=== PATIENT | male | born 1975 | race African-American/Black ===

== ENCOUNTER 2018-09-16 09:13 | Inpatient (IN) | payer OTHER ==
[2018-09-16 09:31] VITALS: BMI 24.9
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
[2018-09-16] MEDS ORDERED: hydrOXYzine PAMOATE 25 MG CAPSULE (FP) PO PRN (11:33)
[2018-09-16] MEDS ORDERED: ACETAMINOPHEN 325 MG TABLET (FP) PO PRN ×2 (11:33)
[2018-09-16] MEDS ORDERED: METHOCARBAMOL 500 MG TABLET PO PRN (11:33)
[2018-09-16] MEDS ORDERED: MAGNESIUM CITRATE 300 ML BOTTLE PO PRN (11:33)
[2018-09-16] MEDS ORDERED: IBUPROFEN 400 MG TABLET (FP) PO PRN (11:33)
[2018-09-16] MEDS ORDERED: MAG HYDROX/AL HYDROX/SIMETH 30 ML UNIT-DOSE CUP PO PRN (11:33)
[2018-09-16] MEDS ORDERED: MAGNESIUM HYDROX 2400MG/30ML ORAL SUSPENSION 30 ML CUP PO PRN (11:33)
[2018-09-16] MEDS ORDERED: MELATONIN 5 MG TABLETS PO PRN (11:33)
[2018-09-16] MEDS ORDERED: MENTHOL/PHENOL 1 EACH UD MM PRN (11:33)
[2018-09-16] MEDS ORDERED: BISMUTH SUBSALICYLATE 524 MG/30 ML UD PO PRN (11:33)
[2018-09-16] MEDS ORDERED: chlordiazePOXIDE HCL 25 MG CAPSULE PO PRN (11:33)
[2018-09-16 16:33] LABS: HEMATOCRIT 43.4 % (35.4-49); MCH 23.8 pg (25.7-33.7); MCHC 32.2 g/dl (32.0-35.9); MEAN CELL VOLUME 74.1 fl (80-96); MEAN PLT VOLUME 8.8 fl (7.5-11.1); PLATELET COUNT 172 K/MM3 (134-434); RBC 5.86 M/mm3 (4.00-5.60); WHITE BLOOD COUNT 5.5 K/mm3 (4.0-10.0)
[2018-09-16 16:39] LABS: BILIRUBIN,TOTAL 1.2 mg/dL (0.2-1); CALCIUM 8.7 mg/dL (8.5-10.1); CREATININE 0.9 mg/dL (0.55-1.3); POTASSIUM 4.3 mmol/L (3.5-5.1); TOT PROT 7.4 g/dl (6.4-8.2)
[2018-09-16] MEDS: THIAMINE HCL 100 MG TABLET (FP) PO SCH (22:46)
[2018-09-16] MEDS: chlordiazePOXIDE HCL 25 MG CAPSULE PO SCH (22:47)
[2018-09-17] MEDS: chlordiazePOXIDE HCL 25 MG CAPSULE PO SCH ×4 (05:33→22:23)
[2018-09-17] MEDS ORDERED: ONDANSETRON *ODT* 4 MG TABLET SL ONE (08:54)
[2018-09-17] MEDS ORDERED: PNEUMOCOCCAL 23 VACCINE 0.5 ML VIAL IM ONE (10:00)
[2018-09-17] MEDS: PRENATAL VITAMINS W/ FOLIC ACID TABLET (FP) PO SCH (10:19)
[2018-09-17] MEDS ORDERED: PNEUMOC 13-VAL CONJ-DIP CRM/PF 0.5 ML DISP.SYRIN IM ONE (12:00)
--- NOTE | 2018-09-17 13:33 | PN ---
S CIWA - CIWA Score Nausea/Vomitin-Mild Nausea/No Vomiting Muscle Tremors: 3 Anxiety: 2 Agitation: 2 Paroxysmal Sweats: 1-Minimal Palms Moist Orientation: 0-Oriented Tacttile Disturbances: 1-Very Mild Itch/Numbness Auditory Disturbances: 0-None Visual Disturbances: 0-None Headache: 1-Very Mild CIWA-Ar Total Score: 11 S Progress Note (SOAP) Subjective: patient lying on bed tremor sweat nausea after breakfast claudia sl x 1 works well with nausea tolerate food and fluid better ensure 120 ml bid po Objective: 09/17/18 13:34 Vital Signs Temperature 96.7 F L 09/17/18 13:01 Pulse Rate 80 09/17/18 13:01 Respiratory Rate 18 09/17/18 13:01 Blood Pressure 139/85 09/17/18 13:01 O2 Sat by Pulse Oximetry (%) Laboratory Last Values WBC 5.5 K/mm3 (4.0-10.0) 09/16/18 12:20 RBC 5.86 M/mm3 (4.00-5.60) H 09/16/18 12:20 Hgb 14.0 GM/dL (11.7-16.9) 09/16/18 12:20 Hct 43.4 % (35.4-49) 09/16/18 12:20 MCV 74.1 fl (80-96) L 09/16/18 12:20 MCH 23.8 pg (25.7-33.7) L 09/16/18 12:20 MCHC 32.2 g/dl (32.0-35.9) 09/16/18 12:20 RDW 17.0 % (11.9-15.9) H 09/16/18 12:20 Plt Count 172 K/MM3 (134-434) D 09/16/18 12:20 MPV 8.8 fl (7.5-11.1) 09/16/18 12:20 Sodium 139 mmol/L (136-145) 09/16/18 12:20 Potassium 4.3 mmol/L (3.5-5.1) 09/16/18 12:20 Chloride 104 mmol/L (98-107) 09/16/18 12:20 Carbon Dioxide 27 mmol/L (21-32) 09/16/18 12:20 Anion Gap 8 MMOL/L (8-16) 09/16/18 12:20 BUN 11.0 mg/dL (7-18) 09/16/18 12:20 Creatinine 0.9 mg/dL (0.55-1.3) 09/16/18 12:20 Est GFR (CKD-EPI)AfAm 122.52 09/16/18 12:20 Est GFR (CKD-EPI)NonAf 105.71 09/16/18 12:20 Random Glucose 78 mg/dL (74-106) 09/16/18 12:20 Calcium 8.7 mg/dL (8.5-10.1) 09/16/18 12:20 Total Bilirubin 1.2 mg/dL (0.2-1) H 09/16/18 12:20 AST 70 U/L (15-37) H 09/16/18 12:20 ALT 74 U/L (13-61) H 09/16/18 12:20 Alkaline Phosphatase 88 U/L (45-117) 09/16/18 12:20 Total Protein 7.4 g/dl (6.4-8.2) 09/16/18 12:20 Albumin 4.0 g/dl (3.4-5.0) 09/16/18 12:20 RPR Titer Nonreactive (NONREACTIVE) 09/16/18 12:20 lab noted Assessment: 09/17/18 13:35 alcohol withdrawal sx Plan: continue alcohol detox
[2018-09-17] MEDS: THIAMINE HCL 100 MG TABLET (FP) PO SCH (22:23)
[2018-09-18] MEDS: chlordiazePOXIDE HCL 25 MG CAPSULE PO SCH ×4 (05:35→22:32)
[2018-09-18] MEDS: PRENATAL VITAMINS W/ FOLIC ACID TABLET (FP) PO SCH (10:15)
[2018-09-18] MEDS ORDERED: ONDANSETRON *ODT* 4 MG TABLET SL PRN (13:54)
--- NOTE | 2018-09-18 17:58 | PN ---
S CIWA - CIWA Score Nausea/Vomitin Muscle Tremors: 3 Anxiety: 3 Agitation: 0-Normal Activity Paroxysmal Sweats: 3 Orientation: 2-Disoriented Date<2 days Tacttile Disturbances: 0-None Auditory Disturbances: 0-None Visual Disturbances: 0-None Headache: 0-None Present CIWA-Ar Total Score: 14 [facility] Progress Note (SOAP) Subjective: Sweating, Tremors, Nausea, Diarrhea. Objective: PATIENT A & O X 2 (UNCERTAIN ABOUT CURRENT DAY / DATE). PATIENT OBSERVED AMBULATING ON UNIT UNASSISTED. IN NO ACUTE DISTRESS. 09/18/18 17:55 Vital Signs Temperature 98.3 F 09/18/18 13:11 Pulse Rate 86 09/18/18 13:11 Respiratory Rate 18 09/18/18 13:11 Blood Pressure 153/84 09/18/18 13:11 O2 Sat by Pulse Oximetry (%) Laboratory Tests 09/16/18 09/16/18 09/16/18 12:20 12:20 12:20 WBC 5.5 RBC 5.86 H Hgb 14.0 Hct 43.4 MCV 74.1 L MCH 23.8 L MCHC 32.2 RDW 17.0 H Plt Count 172 D MPV 8.8 Sodium 139 Potassium 4.3 Chloride 104 Carbon Dioxide 27 Anion Gap 8 BUN 11.0 Creatinine 0.9 Est GFR (CKD-EPI)AfAm 122.52 Est GFR (CKD-EPI)NonAf 105.71 Random Glucose 78 Calcium 8.7 Total Bilirubin 1.2 H AST 70 H ALT 74 H Alkaline Phosphatase 88 Total Protein 7.4 Albumin 4.0 RPR Titer Nonreactive LABS NOTED. RESULTS OF DETOX ADMISSION QFT /TB TEST PENDING. PATIENT HAS HAD ELEVATED ALT AND AST LEVELS ON PREVIOUS ADMISSIONS. 09/18/18 17:57 Assessment: 09/18/18 17:56 WITHDRAWAL SYMPTOMS. ELEVATED AST LEVEL. EELVATED ALT LEVEL. Plan: CONTINUE DETOX. INCREASE DAILY PO WATER INTAKE. PRN PEPTO-BISMOL PO FOR DIARRHEA.
[2018-09-18] MEDS: THIAMINE HCL 100 MG TABLET (FP) PO SCH (22:32)
[2018-09-19] MEDS ORDERED: chlordiazePOXIDE HCL 10 MG CAPSULE PO PRN
[2018-09-19] MEDS: chlordiazePOXIDE HCL 10 MG CAPSULE PO SCH ×4 (05:25→22:50)
[2018-09-19] MEDS: PRENATAL VITAMINS W/ FOLIC ACID TABLET (FP) PO SCH (10:37)
--- NOTE | 2018-09-19 13:26 | PN ---
S CIWA - CIWA Score Nausea/Vomitin Muscle Tremors: 3 Anxiety: 3 Agitation: 0-Normal Activity Paroxysmal Sweats: 2 Orientation: 2-Disoriented Date<2 days Tacttile Disturbances: 0-None Auditory Disturbances: 0-None Visual Disturbances: 0-None Headache: 0-None Present CIWA-Ar Total Score: 12 B[facility] Progress Note (SOAP) Subjective: Sweating, Tremors, Nausea. Patient Reports Mild Reduction in Current withdrawal symptoms over last couple of days. Objective: PATIENT A & O X 2 (UNCERTAIN ABOUT CURRENT DAY / DATE). PATIENT OBSERVED AMBULATING ON UNIT UNASSISTED. IN NO ACUTE DISTRESS. 09/19/18 13:27 Vital Signs Temperature 96.9 F L 09/19/18 09:32 Pulse Rate 72 09/19/18 09:32 Respiratory Rate 18 09/19/18 09:32 Blood Pressure 130/90 09/19/18 09:32 O2 Sat by Pulse Oximetry (%) Laboratory Tests 09/16/18 09/16/18 09/16/18 12:20 12:20 12:20 WBC 5.5 RBC 5.86 H Hgb 14.0 Hct 43.4 MCV 74.1 L MCH 23.8 L MCHC 32.2 RDW 17.0 H Plt Count 172 D MPV 8.8 Sodium 139 Potassium 4.3 Chloride 104 Carbon Dioxide 27 Anion Gap 8 BUN 11.0 Creatinine 0.9 Est GFR (CKD-EPI)AfAm 122.52 Est GFR (CKD-EPI)NonAf 105.71 Random Glucose 78 Calcium 8.7 Total Bilirubin 1.2 H AST 70 H ALT 74 H Alkaline Phosphatase 88 Total Protein 7.4 Albumin 4.0 RPR Titer Nonreactive TB (QFT) Incubation TB Test (QFT) Nil TB Test (QFT) Mitogen TB Test (QFT) Antigen TB Test (QFT) TB Positive Criteria 09/16/18 12:20 WBC RBC Hgb Hct MCV MCH MCHC RDW Plt Count MPV Sodium Potassium Chloride Carbon Dioxide Anion Gap BUN Creatinine Est GFR (CKD-EPI)AfAm Est GFR (CKD-EPI)NonAf Random Glucose Calcium Total Bilirubin AST ALT Alkaline Phosphatase Total Protein Albumin RPR Titer TB (QFT) Incubation TB Test (QFT) Nil 0.07 TB Test (QFT) Mitogen >10.00 TB Test (QFT) Antigen 0.16 TB Test (QFT) Negative TB Positive Criteria LABS NOTED. Assessment: 09/19/18 13:27 WITHDRAWAL SYMPTOMS. ELEVATED AST LEVEL. ELEVATED ALT LEVEL. 09/19/18 13:28 Plan: CONTINUE DETOX. INCREASE DAILY PO WATER INTAKE.
[2018-09-19] MEDS: THIAMINE HCL 100 MG TABLET (FP) PO SCH (22:50)
[2018-09-20] MEDS: chlordiazePOXIDE HCL 10 MG CAPSULE PO SCH ×2 (05:38→16:48)
[2018-09-20] MEDS: PRENATAL VITAMINS W/ FOLIC ACID TABLET (FP) PO SCH (10:12)
--- NOTE | 2018-09-20 11:56 | PN ---
[facility] CIWA - CIWA Score Nausea/Vomitin-No Nausea/No Vomiting Muscle Tremors: 2 Anxiety: 2 Agitation: 2 Paroxysmal Sweats: 1-Minimal Palms Moist Orientation: 0-Oriented Tacttile Disturbances: 0-None Auditory Disturbances: 0-None Visual Disturbances: 0-None Headache: 1-Very Mild CIWA-Ar Total Score: 8 S Progress Note (SOAP) Subjective: 43 years old male admitted on 09/16/18 for alcohol withdrawal sx management doing well with librium detox regimen mild tremor less sweat hesitate to discuss aftercare with staff irritable Objective: 09/20/18 12:04 Vital Signs Temperature 98.2 F 09/20/18 09:28 Pulse Rate 70 09/20/18 09:28 Respiratory Rate 18 09/20/18 09:28 Blood Pressure 136/90 09/20/18 09:28 O2 Sat by Pulse Oximetry (%) Laboratory Last Values WBC 5.5 K/mm3 (4.0-10.0) 09/16/18 12:20 RBC 5.86 M/mm3 (4.00-5.60) H 09/16/18 12:20 Hgb 14.0 GM/dL (11.7-16.9) 09/16/18 12:20 Hct 43.4 % (35.4-49) 09/16/18 12:20 MCV 74.1 fl (80-96) L 09/16/18 12:20 MCH 23.8 pg (25.7-33.7) L 09/16/18 12:20 MCHC 32.2 g/dl (32.0-35.9) 09/16/18 12:20 RDW 17.0 % (11.9-15.9) H 09/16/18 12:20 Plt Count 172 K/MM3 (134-434) D 09/16/18 12:20 MPV 8.8 fl (7.5-11.1) 09/16/18 12:20 Sodium 139 mmol/L (136-145) 09/16/18 12:20 Potassium 4.3 mmol/L (3.5-5.1) 09/16/18 12:20 Chloride 104 mmol/L (98-107) 09/16/18 12:20 Carbon Dioxide 27 mmol/L (21-32) 09/16/18 12:20 Anion Gap 8 MMOL/L (8-16) 09/16/18 12:20 BUN 11.0 mg/dL (7-18) 09/16/18 12:20 Creatinine 0.9 mg/dL (0.55-1.3) 09/16/18 12:20 Est GFR (CKD-EPI)AfAm 122.52 09/16/18 12:20 Est GFR (CKD-EPI)NonAf 105.71 09/16/18 12:20 Random Glucose 78 mg/dL (74-106) 09/16/18 12:20 Calcium 8.7 mg/dL (8.5-10.1) 09/16/18 12:20 Total Bilirubin 1.2 mg/dL (0.2-1) H 09/16/18 12:20 AST 70 U/L (15-37) H 09/16/18 12:20 ALT 74 U/L (13-61) H 09/16/18 12:20 Alkaline Phosphatase 88 U/L (45-117) 09/16/18 12:20 Total Protein 7.4 g/dl (6.4-8.2) 09/16/18 12:20 Albumin 4.0 g/dl (3.4-5.0) 09/16/18 12:20 RPR Titer Nonreactive (NONREACTIVE) 09/16/18 12:20 TB (QFT) Incubation (.) 09/16/18 12:20 TB Test (QFT) Nil 0.07 IU/mL (.) 09/16/18 12:20 TB Test (QFT) Mitogen >10.00 IU/mL (.) 09/16/18 12:20 TB Test (QFT) Antigen 0.16 IU/mL (.) 09/16/18 12:20 TB Test (QFT) Negative (Negative) 09/16/18 12:20 TB Positive Criteria (.) 09/16/18 12:20 lab noted Assessment: 09/20/18 12:04 alcohol withdrawal sx Plan: continue alcohol detox
[2018-09-20] MEDS: THIAMINE HCL 100 MG TABLET (FP) PO SCH (22:07)
[2018-09-21] MEDS ORDERED: chlordiazePOXIDE HCL 10 MG CAPSULE PO ONE (05:00)
[2018-09-21 09:38] VITALS: BP 130/87; PULSE 99; TEMP 97.3
[2018-09-21] MEDS: PRENATAL VITAMINS W/ FOLIC ACID TABLET (FP) PO SCH (09:38)
--- NOTE | 2018-09-21 12:36 | DS ---
[facility] Detox Discharge Summary Admission Date: 09/16/18 Discharge Date: 09/21/18 - History Present History: Alcohol Dependence Additional Comments: 43 years old male admitted on 09/16/18 for acute alcohol withdrawal sx management doing well with librium detox regimen no complication through out the detox stay alert oriented x 3 speech clearly steady gait denies dizziness no shortness of breathe aftercare bridging access to care - Physical Exam Results Vital Signs: Vital Signs Temperature 97.3 F L 09/21/18 09:37 Pulse Rate 99 H 09/21/18 09:37 Respiratory Rate 18 09/21/18 09:37 Blood Pressure 130/87 09/21/18 09:37 O2 Sat by Pulse Oximetry (%) Pertinent Admission Physical Exam Findings: alcohol withdrawal sx Laboratory Last Values WBC 5.5 K/mm3 (4.0-10.0) 09/16/18 12:20 RBC 5.86 M/mm3 (4.00-5.60) H 09/16/18 12:20 Hgb 14.0 GM/dL (11.7-16.9) 09/16/18 12:20 Hct 43.4 % (35.4-49) 09/16/18 12:20 MCV 74.1 fl (80-96) L 09/16/18 12:20 MCH 23.8 pg (25.7-33.7) L 09/16/18 12:20 MCHC 32.2 g/dl (32.0-35.9) 09/16/18 12:20 RDW 17.0 % (11.9-15.9) H 09/16/18 12:20 Plt Count 172 K/MM3 (134-434) D 09/16/18 12:20 MPV 8.8 fl (7.5-11.1) 09/16/18 12:20 Sodium 139 mmol/L (136-145) 09/16/18 12:20 Potassium 4.3 mmol/L (3.5-5.1) 09/16/18 12:20 Chloride 104 mmol/L (98-107) 09/16/18 12:20 Carbon Dioxide 27 mmol/L (21-32) 09/16/18 12:20 Anion Gap 8 MMOL/L (8-16) 09/16/18 12:20 BUN 11.0 mg/dL (7-18) 09/16/18 12:20 Creatinine 0.9 mg/dL (0.55-1.3) 09/16/18 12:20 Est GFR (CKD-EPI)AfAm 122.52 09/16/18 12:20 Est GFR (CKD-EPI)NonAf 105.71 09/16/18 12:20 Random Glucose 78 mg/dL (74-106) 09/16/18 12:20 Calcium 8.7 mg/dL (8.5-10.1) 09/16/18 12:20 Total Bilirubin 1.2 mg/dL (0.2-1) H 09/16/18 12:20 AST 70 U/L (15-37) H 09/16/18 12:20 ALT 74 U/L (13-61) H 09/16/18 12:20 Alkaline Phosphatase 88 U/L (45-117) 09/16/18 12:20 Total Protein 7.4 g/dl (6.4-8.2) 09/16/18 12:20 Albumin 4.0 g/dl (3.4-5.0) 09/16/18 12:20 RPR Titer Nonreactive (NONREACTIVE) 09/16/18 12:20 TB (QFT) Incubation (.) 09/16/18 12:20 TB Test (QFT) Nil 0.07 IU/mL (.) 09/16/18 12:20 TB Test (QFT) Mitogen >10.00 IU/mL (.) 09/16/18 12:20 TB Test (QFT) Antigen 0.16 IU/mL (.) 09/16/18 12:20 TB Test (QFT) Negative (Negative) 09/16/18 12:20 TB Positive Criteria (.) 09/16/18 12:20 lab noted - Treatment Hospital Course: Detox Protocol Followed, Detoxed Safely, Responded well, Discharged Condition Good, Rehab Referral Accepted Patient has Accepted a Rehab Referral to: bridging access to care - Medication Discharge Medications: Ambulatory Orders NK [No Known Home Medication] 09/04/17 - Diagnosis (1) Alcohol dependence with uncomplicated withdrawal Status: Acute (2) Nicotine dependence Status: Acute Qualifiers: Nicotine product type: cigarettes Substance use status: in withdrawal Qualified Code(s): F17.213 - Nicotine dependence, cigarettes, with withdrawal (3) Alcohol-induced mood disorder Status: Suspected - AMA Did Patient Leave Against Medical Advice: No
== END 2018-09-21 08:45 | disposition home or self-care (01) | DRG 775 ==
LOC: YASAS 09:13 → Y3N 11:57
PROVIDERS: ADMIT Surgery; ATTEND Surgery
PROC: HZ2ZZZZ Detoxification Services for Substance Abuse Treatment (ICD-10-PCS; principal; 2018-09-16)
DX: F10.20 Alcohol dependence, uncomplicated (principal); F12.10 Cannabis abuse, uncomplicated; F17.210 Nicotine dependence, cigarettes, uncomplicated; F32.9 Major depressive disorder, single episode, unspecified; M79.18 Myalgia, other site; R94.5 Abnormal results of liver function studies; Z59.0 Homelessness
CPT/HCPCS: 36415; 80053; 85027; 86480; 86593; Q0162

== ENCOUNTER 2019-02-22 14:46 | Inpatient (IN) | payer OTHER ==
[2019-02-22 17:05] VITALS: BMI 26.1
[2019-02-22] MEDS ORDERED: MAGNESIUM HYDROX 2400MG/30ML ORAL SUSPENSION 30 ML CUP PO PRN (20:17)
[2019-02-22] MEDS ORDERED: NICOTINE POLACRILEX 2 MG GUM BUC PRN (20:17)
[2019-02-22] MEDS ORDERED: IBUPROFEN 400 MG TABLET (FP) PO PRN (20:17)
[2019-02-22] MEDS ORDERED: MAG HYDROX/AL HYDROX/SIMETH 30 ML UNIT-DOSE CUP PO PRN (20:17)
[2019-02-22] MEDS ORDERED: ACETAMINOPHEN 325 MG TABLET (FP) PO PRN ×2 (20:17)
[2019-02-22] MEDS ORDERED: MAGNESIUM CITRATE 300 ML BOTTLE PO PRN (20:17)
[2019-02-22] MEDS ORDERED: LORazepam 2 MG TABLET PO ONE (20:17)
[2019-02-22] MEDS ORDERED: MENTHOL/PHENOL 1 EACH UD MM PRN (20:17)
[2019-02-22] MEDS ORDERED: BISMUTH SUBSALICYLATE 524 MG/30 ML UD PO PRN (20:17)
[2019-02-22] MEDS ORDERED: LORazepam 1 MG TABLET PO PRN (20:17)
[2019-02-22] MEDS ORDERED: METHOCARBAMOL 500 MG TABLET PO PRN (20:17)
[2019-02-22] MEDS ORDERED: hydrOXYzine PAMOATE 25 MG CAPSULE (FP) PO PRN (20:17)
[2019-02-22] MEDS ORDERED: ONDANSETRON *ODT* 4 MG TABLET SL PRN (20:17)
[2019-02-22] MEDS ORDERED: MELATONIN 5 MG TABLETS PO PRN (20:17)
--- NOTE | 2019-02-22 20:17 | HP ---
CIWA Score Nausea/Vomitin Muscle Tremors: 3 Anxiety: 2 Agitation: 2 Paroxysmal Sweats: 1-Minimal Palms Moist Orientation: 0-Oriented Tacttile Disturbances: 0-None Auditory Disturbances: 0-None Visual Disturbances: 1-Very Mild Sensitivity Headache: 1-Very Mild CIWA-Ar Total Score: 12 - Admission Criteria OASAS Guidelines: Admission for Medically Managed Detox: Requires at least one of the followin. CIWA greater than 12 2. Seizures within the past 24 hours 3. Delirium tremens within the past 24 hours 4. Hallucinations within the past 24 hours 5. Acute intervention needed for co occurring medical disorder 6. Acute intervention needed for co occurring psychiatric disorder 7. Severe withdrawal that cannot be handled at a lower level of care (continued vomiting, continued diarrhea, abnormal vital signs) requiring intravenous medication and/or fluids 8. Patient presents the following: CIWA greater than 12 Admission Criteria Met: Admission criteria met Admitting History and Physical - Smoking History Smoking history: Current every day smoker Have you smoked in the past 12 months: Yes Aproximately how many cigarettes per day: 5 - Alcohol/Substance Use Hx Alcohol Use: Yes (binges and also up to 5 pints per day) Admission [facility] Chief Complaint: alcohol detox Allergies/Adverse Reactions: Allergies Allergy/AdvReac Type Severity Reaction Status Date / Time No Known Allergies Allergy Verified 02/22/19 16:56 History of Present Illness: 44 yo with h/o AUD, last here 08/2018, h/o depression- on no meds, was in an outpt program for AUD, left, states he is drinking every- 4-5 pints/day, of vodka, no h/o seizures/DT's. Last drink today THC-2 blunts/week DUR- no recent meds - Ebola screening Have you traveled outside of the country in the last 21 days: No Have you had contact with anyone from an Ebola affected area: No - Review of Systems Constitutional: No Symptoms Reported EENT: reports: No Symptoms Reported Respiratory: reports: No Symptoms reported Cardiac: reports: No Symptoms Reported GI: reports: No Symptoms Reported : reports: No Symptoms Reported Musculoskeletal: reports: No Symptoms Reported Integumentary: reports: No Symptoms Reported Neuro: reports: No Symptoms reported Endocrine: reports: No Symptoms Reported Hematology: reports: No Symptoms Reported Psychiatric: reports: No Sypmtoms Reported Other Systems: Reviewed and Negative Patient History - Patient Medical History Hx Anemia: No Hx Asthma: No Hx Chronic Obstructive Pulmonary Disease (COPD): No Hx Cardiac Disorders: No Hx Hypertension: No Hx Hypercholesterolemia: No HX Cerebrovascular Accident: No Hx Seizures: No Hx Diabetes: No Hx Gastrointestinal Disorders: No Hx Genitourinary Disorders: No Hx Sexually Transmitted Disorders: No (DENIES) Hx Renal Disease (ESRD): No Hx Thyroid Disease: No Hx Human Immunodeficiency Virus (HIV): No (NEGATIVE HX) Hx Hepatitis C: No Hx Depression: Yes (denies ideation and never put on medications) Hx Suicide Attempt: No (DENIES S/H/I) Hx Bipolar Disorder: No Hx Schizophrenia: No - Patient Surgical History Past Surgical History: Yes Hx Neurologic Surgery: No Hx Cataract Extraction: No Hx Cardiac Surgery: No Hx Lung Surgery: No Hx Breast Surgery: No Hx Breast Biopsy: No Hx Abdominal Surgery: No Hx Appendectomy: No Hx Cholecystectomy: No Hx Genitourinary Surgery: No Hx Section: No Hx Orthopedic Surgery: No Other Surgical History: LEFT HAND SURGERY 2012 Anesthesia Reaction: No - PPD History Date: 09/06/17 - Smoking Cessation Smoking history: Current every day smoker Have you smoked in the past 12 months: Yes Aproximately how many cigarettes per day: 5 Hx Chewing Tobacco Use: No Initiated information on smoking cessation: Yes 'Breaking Loose' booklet given: 02/22/19 - Substance & Tx. History Hx Alcohol Use: Yes Hx Substance Use: Yes Substance Use Type: Alcohol Hx Substance Use Treatment: Yes - Substances abused Alcohol Substance route: Oral Frequency: Daily Amount used: 4-5 pints of vodka & 6 beers Age of first use: 18 Date of last use: 02/22/19 Marijuana/Hashish Substance route: Smoking Frequency: 1-3 times last 30 days Amount used: $10 Age of first use: 21 Date of last use: 02/21/19 Admission Physical Exam [facility] - Vital Signs Vital Signs: Vital Signs - 24 hr 02/22/19 02/22/19 16:55 19:05 Temperature 98.1 F 98.1 F Pulse Rate 69 69 Respiratory 20 20 Rate Blood Pressure 139/91 139/91 - Physical General Appearance: Yes: Within Normal Limits HEENTM: Yes: Within Normal Limits Respiratory: Yes: Within Normal Limits Neck: Yes: Within Normal Limits Cardiology: Yes: Within Normal Limits Abdominal: Yes: Within Normal Limits Genitourinary: Yes: Within Normal Limits Back: Yes: Within Normal Limits Musculoskeletal: Yes: Within Normal Limits Extremities: Yes: Within Normal Limits Neurological: Yes: Within Normal Limits, community health agent II-XII NML intact, Fully Oriented Integumentary: Yes: Within Normal Limits Lymphatic: Yes: Within Normal Limits - Diagnostic (1) Alcohol dependence with uncomplicated withdrawal Current Visit: No Status: Acute (2) Cannabis dependence, uncomplicated Current Visit: No Status: Acute (3) Depression Current Visit: No Status: Acute Breathalyzer - Breathalyzer Breathalyzer: 0.108 Urine Drug Screen - Test Device Lot number: [id number] Expiration date: 11/16/20 - Control Is test valid?: Yes - Results Drug screen NEGATIVE: No Urine drug screen results: THC-Marijuana Inpatient Rehab Admission - Rehab Decision to Admit Inpatient rehab admission?: No
[2019-02-22] MEDS: THIAMINE HCL 100 MG TABLET (FP) PO SCH (21:21)
[2019-02-22] MEDS: LORazepam 2 MG TABLET PO SCH (23:29)
[2019-02-23] MEDS: LORazepam 2 MG TABLET PO SCH ×4 (04:57→22:12)
[2019-02-23 09:41] LABS: HEMATOCRIT 43.9 % (35.4-49); HEMOGLOBIN 14.1 GM/dL (11.7-16.9); MCH 23.7 pg (25.7-33.7); MCHC 32.1 g/dl (32.0-35.9); MEAN CELL VOLUME 73.8 fl (80-96); MEAN PLT VOLUME 8.6 fl (7.5-11.1); PLATELET COUNT 201 K/MM3 (134-434); RBC 5.95 M/mm3 (4.00-5.60); RDW 14.7 % (11.9-15.9)
[2019-02-23] MEDS: PRENATAL VITAMINS W/ FOLIC ACID TABLET (FP) PO SCH (10:13)
--- NOTE | 2019-02-23 10:19 | CONSULT ---
[facility] Psychiatric Consult - Data Date of interview: 02/23/19 Admission source: [facility] Identifying data: Revisit to [facility] and admission to [address] [place] [address] for this 44 y/o AA male self-referred for detoxification treatment. TAMMY issues : alcohol, cannabis, nicotine. Patient is single, no dependents, homeless, unemployed and supported by relatives (occasional donations). Substance Abuse History: Discussed with the patient. Details in current [facility] report as follows : Smoking history: Current every day smoker. Have you smoked in the past 12 months: Yes. Aproximately how many cigarettes per day: 5. Hx Chewing Tobacco Use: No. Initiated information on smoking cessation: Yes. ' Breaking Loose' booklet given: 02/22/19. - Substance & Tx. History. Hx Alcohol Use: Yes. Hx Substance Use: Yes. Substance Use Type: Alcohol. Hx Substance Use Treatment: Yes. - Substances abused. Alcohol. Substance route: Oral. Frequency: Daily. Amount used: 4-5 pints of vodka & 6 beers. Age of first use: 18. Date of last use: 02/22/19. Marijuana/Hashish. Substance route: Smoking. Frequency: 1-3 times last 30 days. Amount used: $ 10. Age of first use: 21. Date of last use: 02/21/19 Medical History: Patient endorses good general health. Noted antecedent of orthosurgery (left hand). Psychiatric History: Patient endorses a history of " a couple " of psychiatric hospitalizations ([facility], [facility]). Last hospitalized in 2014. Reportedly diagnosed with MDD. Mr Escobedo indicates that he used to prescribed trazodone, lexapro, aripriprazole and zolpidem. Has been lost to follow-up for months (which includes total non-adherence to psychotropic medications). Patient denies history of suicide attempts. Physical/Sexual Abuse/Trauma History: Patient denies. Additional Comment: Urine drug screen results: THC-Marijuana. Noted. Mental Status Exam - Mental Status Exam Alert and Oriented to: Time, Place, Person Cognitive Function: Good Patient Appearance: Well Groomed Mood: Nervous, Withdrawn Affect: Mood Congruent, Constricted Patient Behavior: Fatigued, Appropriate, Cooperative Speech Pattern: Clear Voice Loudness: Normal Thought Process: Intact, Goal Oriented Thought Disorder: Not Present Hallucinations: Denies Suicidal Ideation: Denies Homicidal Ideation: Denies Insight/Judgement: Poor Sleep: Poorly, Difficulty falling asleep Appetite: Good Muscle strength/Tone: Normal (no complaint offered) Gait/Station: Normal Psychiatric Findings - Problem List ([place] 1, 2,3) (1) Alcohol dependence with uncomplicated withdrawal Current Visit: Yes Status: Acute (2) Cannabis dependence, uncomplicated Current Visit: Yes Status: Chronic (3) Cocaine dependence Current Visit: Yes Status: Chronic (4) Nicotine dependence Current Visit: Yes Status: Chronic Qualifiers: Nicotine product type: cigarettes Substance use status: in withdrawal Qualified Code(s): F17.213 - Nicotine dependence, cigarettes, with withdrawal (5) Drug-induced mood disorder Current Visit: Yes Status: Chronic (6) Insomnia Current Visit: Yes Status: Chronic - Initial Treatment Plan Initial Treatment Plan: Psychoeducation. Sleep hygiene. Detoxification. Support. AA meetings. Groups. Patient requested trazodone for insomnia. Ordered : trazodone 50 mg po hs. Side effects/benefits discussed with patient (made, in particular, aware of potential for priapism). Informed consent (verbal) obtained from the patient. Observation.
[2019-02-23 11:09] LABS: ALBUMIN 3.5 g/dl (3.4-5.0); BILIRUBIN,TOTAL 1.2 mg/dL (0.2-1); BLOOD UREA NITROGEN 13.4 mg/dL (7-18); CALCIUM 8.8 mg/dL (8.5-10.1); POTASSIUM 4.2 mmol/L (3.5-5.1); TOT PROT 6.4 g/dl (6.4-8.2)
--- NOTE | 2019-02-23 11:26 | PN ---
[facility] CIWA - CIWA Score Nausea/Vomitin-Mild Nausea/No Vomiting Muscle Tremors: 3 Anxiety: 4-Mod. Anxious/Guarded Agitation: 1-Slight > Activity Paroxysmal Sweats: 2 Orientation: 0-Oriented Tacttile Disturbances: 0-None Auditory Disturbances: 0-None Visual Disturbances: 0-None Headache: 0-None Present CIWA-Ar Total Score: 11 S Progress Note (SOAP) Subjective: 44 years old male admitted on 02/22/19 for alcohol withdrawal sx management treating with ativan detox regimen feeling ok today slept through the night social with peers in day room Objective: 02/23/19 11:25 Vital Signs Temperature 96.9 F L 02/23/19 09:19 Pulse Rate 75 02/23/19 09:19 Respiratory Rate 18 02/23/19 09:19 Blood Pressure 124/76 02/23/19 09:19 O2 Sat by Pulse Oximetry (%) Laboratory Last Values WBC 4.0 K/mm3 (4.0-10.0) 02/23/19 08:00 RBC 5.95 M/mm3 (4.00-5.60) H 02/23/19 08:00 Hgb 14.1 GM/dL (11.7-16.9) 02/23/19 08:00 Hct 43.9 % (35.4-49) 02/23/19 08:00 MCV 73.8 fl (80-96) L 02/23/19 08:00 MCH 23.7 pg (25.7-33.7) L 02/23/19 08:00 MCHC 32.1 g/dl (32.0-35.9) 02/23/19 08:00 RDW 14.7 % (11.9-15.9) D 02/23/19 08:00 Plt Count 201 K/MM3 (134-434) 02/23/19 08:00 MPV 8.6 fl (7.5-11.1) 02/23/19 08:00 Sodium 139 mmol/L (136-145) 02/23/19 08:00 Potassium 4.2 mmol/L (3.5-5.1) 02/23/19 08:00 Chloride 104 mmol/L (98-107) 02/23/19 08:00 Carbon Dioxide 28 mmol/L (21-32) 02/23/19 08:00 Anion Gap 6 MMOL/L (8-16) L 02/23/19 08:00 BUN 13.4 mg/dL (7-18) 02/23/19 08:00 Creatinine 1.0 mg/dL (0.55-1.3) 02/23/19 08:00 Est GFR (CKD-EPI)AfAm 107.12 02/23/19 08:00 Est GFR (CKD-EPI)NonAf 92.42 02/23/19 08:00 Random Glucose 90 mg/dL (74-106) 02/23/19 08:00 Calcium 8.8 mg/dL (8.5-10.1) 02/23/19 08:00 Total Bilirubin 1.2 mg/dL (0.2-1) H 02/23/19 08:00 AST 48 U/L (15-37) H 02/23/19 08:00 ALT 69 U/L (13-61) H 02/23/19 08:00 Alkaline Phosphatase 60 U/L (45-117) 02/23/19 08:00 Total Protein 6.4 g/dl (6.4-8.2) 02/23/19 08:00 Albumin 3.5 g/dl (3.4-5.0) 02/23/19 08:00 lab noted Assessment: 02/23/19 11:25 alcohol withdrawal Plan: ativan regimen
[2019-02-23] MEDS: traZODone HCL 50 MG TABLET (FP) PO SCH (22:12)
[2019-02-23] MEDS: THIAMINE HCL 100 MG TABLET (FP) PO SCH (22:12)
[2019-02-24] MEDS: LORazepam 1 MG TABLET PO SCH ×4 (06:15→22:22)
[2019-02-24] MEDS: PRENATAL VITAMINS W/ FOLIC ACID TABLET (FP) PO SCH (10:16)
--- NOTE | 2019-02-24 11:09 | PN ---
[facility] CIWA - CIWA Score Nausea/Vomitin-No Nausea/No Vomiting Muscle Tremors: 2 Anxiety: 2 Agitation: 2 Paroxysmal Sweats: 2 Orientation: 0-Oriented Tacttile Disturbances: 0-None Auditory Disturbances: 0-None Visual Disturbances: 0-None Headache: 1-Very Mild CIWA-Ar Total Score: 9 S Progress Note (SOAP) Subjective: 44 years old male admitted on 02/22/19 for alcohol withdrawal sx management treating with ativan detox regimen feeling ok today ate breakfast resting in bed comfortably encourage the patient to attend behavior and psychosocial therapies groups while in detox Objective: 02/24/19 11:14 Vital Signs Temperature 96.1 F L 02/24/19 09:21 Pulse Rate 81 02/24/19 09:21 Respiratory Rate 18 02/24/19 09:21 Blood Pressure 122/64 02/24/19 09:21 O2 Sat by Pulse Oximetry (%) Laboratory Last Values WBC 4.0 K/mm3 (4.0-10.0) 02/23/19 08:00 RBC 5.95 M/mm3 (4.00-5.60) H 02/23/19 08:00 Hgb 14.1 GM/dL (11.7-16.9) 02/23/19 08:00 Hct 43.9 % (35.4-49) 02/23/19 08:00 MCV 73.8 fl (80-96) L 02/23/19 08:00 MCH 23.7 pg (25.7-33.7) L 02/23/19 08:00 MCHC 32.1 g/dl (32.0-35.9) 02/23/19 08:00 RDW 14.7 % (11.9-15.9) D 02/23/19 08:00 Plt Count 201 K/MM3 (134-434) 02/23/19 08:00 MPV 8.6 fl (7.5-11.1) 02/23/19 08:00 Sodium 139 mmol/L (136-145) 02/23/19 08:00 Potassium 4.2 mmol/L (3.5-5.1) 02/23/19 08:00 Chloride 104 mmol/L (98-107) 02/23/19 08:00 Carbon Dioxide 28 mmol/L (21-32) 02/23/19 08:00 Anion Gap 6 MMOL/L (8-16) L 02/23/19 08:00 BUN 13.4 mg/dL (7-18) 02/23/19 08:00 Creatinine 1.0 mg/dL (0.55-1.3) 02/23/19 08:00 Est GFR (CKD-EPI)AfAm 107.12 02/23/19 08:00 Est GFR (CKD-EPI)NonAf 92.42 02/23/19 08:00 Random Glucose 90 mg/dL (74-106) 02/23/19 08:00 Calcium 8.8 mg/dL (8.5-10.1) 02/23/19 08:00 Total Bilirubin 1.2 mg/dL (0.2-1) H 02/23/19 08:00 AST 48 U/L (15-37) H 02/23/19 08:00 ALT 69 U/L (13-61) H 02/23/19 08:00 Alkaline Phosphatase 60 U/L (45-117) 02/23/19 08:00 Total Protein 6.4 g/dl (6.4-8.2) 02/23/19 08:00 Albumin 3.5 g/dl (3.4-5.0) 02/23/19 08:00 RPR Titer Nonreactive (NONREACTIVE) 02/23/19 08:00 HIV 1&2 Antibody Screen Negative 02/23/19 08:00 HIV P24 Antigen Negative 02/23/19 08:00 lab noted Assessment: 02/24/19 11:14 alcohol withdrawal Plan: ativan regimen
[2019-02-24] MEDS: traZODone HCL 50 MG TABLET (FP) PO SCH (22:21)
[2019-02-24] MEDS: THIAMINE HCL 100 MG TABLET (FP) PO SCH (22:22)
[2019-02-25] MEDS ORDERED: LORazepam 0.5 MG TABLET PO PRN
[2019-02-25] MEDS: LORazepam 0.5 MG TABLET PO SCH ×2 (06:11→10:25)
[2019-02-25 09:04] VITALS: BP 118/82; PULSE 77; TEMP 97.9
[2019-02-25] MEDS: PRENATAL VITAMINS W/ FOLIC ACID TABLET (FP) PO SCH (10:25)
--- NOTE | 2019-02-25 11:24 | DS ---
[facility] Detox Discharge Summary Admission Date: 02/22/19 Discharge Date: 02/25/19 - History Present History: Alcohol Dependence Additional Comments: 44 years old male admitted on 02/22/19 for alcohol withdrawal sx management treated with ativan detox regimen patient tolerated well alert oriented x 3 patient prefers to leave one day early as per estimated discharge date of case discussed with the nurse routine discharge is appropriated respiratory clear lungs bilaterally on auscultation skin warm and dry extremities full range of motion - Physical Exam Results Vital Signs: Vital Signs Temperature 97.9 F 02/25/19 09:04 Pulse Rate 77 02/25/19 09:04 Respiratory Rate 18 02/25/19 09:04 Blood Pressure 118/82 02/25/19 09:04 O2 Sat by Pulse Oximetry (%) Pertinent Admission Physical Exam Findings: alcohol withdrawal Laboratory Last Values WBC 4.0 K/mm3 (4.0-10.0) 02/23/19 08:00 RBC 5.95 M/mm3 (4.00-5.60) H 02/23/19 08:00 Hgb 14.1 GM/dL (11.7-16.9) 02/23/19 08:00 Hct 43.9 % (35.4-49) 02/23/19 08:00 MCV 73.8 fl (80-96) L 02/23/19 08:00 MCH 23.7 pg (25.7-33.7) L 02/23/19 08:00 MCHC 32.1 g/dl (32.0-35.9) 02/23/19 08:00 RDW 14.7 % (11.9-15.9) D 02/23/19 08:00 Plt Count 201 K/MM3 (134-434) 02/23/19 08:00 MPV 8.6 fl (7.5-11.1) 02/23/19 08:00 Sodium 139 mmol/L (136-145) 02/23/19 08:00 Potassium 4.2 mmol/L (3.5-5.1) 02/23/19 08:00 Chloride 104 mmol/L (98-107) 02/23/19 08:00 Carbon Dioxide 28 mmol/L (21-32) 02/23/19 08:00 Anion Gap 6 MMOL/L (8-16) L 02/23/19 08:00 BUN 13.4 mg/dL (7-18) 02/23/19 08:00 Creatinine 1.0 mg/dL (0.55-1.3) 02/23/19 08:00 Est GFR (CKD-EPI)AfAm 107.12 02/23/19 08:00 Est GFR (CKD-EPI)NonAf 92.42 02/23/19 08:00 Random Glucose 90 mg/dL (74-106) 02/23/19 08:00 Calcium 8.8 mg/dL (8.5-10.1) 02/23/19 08:00 Total Bilirubin 1.2 mg/dL (0.2-1) H 02/23/19 08:00 AST 48 U/L (15-37) H 02/23/19 08:00 ALT 69 U/L (13-61) H 02/23/19 08:00 Alkaline Phosphatase 60 U/L (45-117) 02/23/19 08:00 Total Protein 6.4 g/dl (6.4-8.2) 02/23/19 08:00 Albumin 3.5 g/dl (3.4-5.0) 02/23/19 08:00 RPR Titer Nonreactive (NONREACTIVE) 02/23/19 08:00 HIV 1&2 Antibody Screen Negative 02/23/19 08:00 HIV P24 Antigen Negative 02/23/19 08:00 lab noted - Treatment Hospital Course: Detox Protocol Followed, Detoxed Safely, Responded well, Discharged Condition Good, Rehab Referral Accepted Patient has Accepted a Rehab Referral to: ready willing and able - Medication Discharge Medications: Ambulatory Orders NK [No Known Home Medication] 09/04/17 - Diagnosis (1) Substance induced mood disorder Status: Suspected (2) Alcohol dependence with uncomplicated withdrawal Status: Acute (3) Nicotine dependence Status: Acute Qualifiers: Nicotine product type: cigarettes Substance use status: in withdrawal Qualified Code(s): F17.213 - Nicotine dependence, cigarettes, with withdrawal - AMA Did Patient Leave Against Medical Advice: No CIWA Score - CIWA Score Nausea/Vomitin-No Nausea/No Vomiting Muscle Tremors: 1-None Visible, but [place] Anxiety: 1-Mildly Anxious Agitation: 1-Slight > Activity Paroxysmal Sweats: 1-Minimal Palms Moist Orientation: 0-Oriented Tacttile Disturbances: 0-None Auditory Disturbances: 0-None Visual Disturbances: 0-None Headache: 0-None Present CIWA-Ar Total Score: 4
[2019-02-26] MEDS ORDERED: LORazepam 0.5 MG TABLET PO ONE (05:00)
== END 2019-02-25 10:50 | disposition home or self-care (01) | DRG 774 ==
LOC: YASAS 14:46 → Y3N 20:24
PROVIDERS: ADMIT Allergy & Immunology; ATTEND Allergy & Immunology
PROC: HZ2ZZZZ Detoxification Services for Substance Abuse Treatment (ICD-10-PCS; principal; 2019-02-22)
DX: F10.230 Alcohol dependence with withdrawal, uncomplicated (principal); F14.20 Cocaine dependence, uncomplicated; F12.20 Cannabis dependence, uncomplicated; F17.213 Nicotine dependence, cigarettes, with withdrawal; F19.24 Other psychoactive substance dependence with psychoactive substance-induced mood disorder; F32.9 Major depressive disorder, single episode, unspecified; G47.00 Insomnia, unspecified
CPT/HCPCS: 36415; 80053; 85027; 86593; 87389

== ENCOUNTER 2019-10-20 12:20 | Inpatient (IN) | payer OTHER ==
--- NOTE | 2019-10-20 12:34 | BHS.RME ---
Substance Use & Tx History - Substance Use History Alcohol Substance amount: 2 pints vodka Frequency of use: Daily Substance route: Oral Date of Last Use: 10/20/19 Marijuana/Hashish Substance amount: 1 blunt Frequency of use: Less than 3 times per week Substance route: Smoking Date of Last Use: 10/19/19 Nicotine Substance amount: 4 ciggs Frequency of use: Daily Substance route: Smoking Date of Last Use: 10/20/19 - Last Treatment Date of last treatment: 04/26-05/02/19 Treatment type: Substance Use Disorder (TAMMY) Where was last treatment: Detox Physical/Psych/Mental Status - Behavior General Behavior: Increased activity (restlessness, agitation) Eye Contact: Normal - Cooperativeness Cooperativeness: Cooperative - Thinking Thought Processes: Tight, Logical, Goal Directed Thought content: Future oriented CIWA Nausea/Vomitin Muscle Tremors: 4-Moderate,w/Arms Extend Anxiety: 4-Mod. Anxious/Guarded Agitation: 4-Moderately Restless Paroxysmal Sweats: 1-Minimal Palms Moist Orientation: 0-Oriented Tacttile Disturbances: 0-None Auditory Disturbances: 0-None Visual Disturbances: 0-None Headache: 1-Very Mild CIWA-Ar Total Score: 16
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
[2019-10-20] MEDS ORDERED: ONDANSETRON *ODT* 4 MG TABLET SL PRN (12:59)
[2019-10-20] MEDS ORDERED: MENTHOL/PHENOL 1 EACH UD MM PRN (12:59)
[2019-10-20] MEDS ORDERED: IBUPROFEN 400 MG TABLET (FP) PO PRN (12:59)
[2019-10-20] MEDS ORDERED: BISMUTH SUBSALICYLATE 524 MG/30 ML UD PO PRN (12:59)
[2019-10-20] MEDS ORDERED: MAGNESIUM HYDROX 2400MG/30ML ORAL SUSPENSION 30 ML CUP PO PRN (12:59)
[2019-10-20] MEDS ORDERED: MAGNESIUM CITRATE 300 ML BOTTLE PO PRN (12:59)
[2019-10-20] MEDS ORDERED: NICOTINE POLACRILEX 2 MG GUM BUC PRN (12:59)
[2019-10-20] MEDS ORDERED: ACETAMINOPHEN 325 MG TABLET (FP) PO PRN ×2 (12:59)
[2019-10-20] MEDS ORDERED: MAG HYDROX/AL HYDROX/SIMETH 30 ML UNIT-DOSE CUP PO PRN (12:59)
[2019-10-20 13:13] VITALS: BMI 24.6
[2019-10-20] MEDS: chlordiazePOXIDE HCL 25 MG CAPSULE PO PRN (14:15)
[2019-10-20] MEDS: hydrOXYzine PAMOATE 25 MG CAPSULE (FP) PO SCH ×3 (14:15→22:52)
[2019-10-20] MEDS: METHOCARBAMOL 500 MG TABLET PO PRN (14:15)
[2019-10-20 15:31] LABS: HEMATOCRIT 44.7 % (35.4-49); HEMOGLOBIN 13.9 GM/dL (11.7-16.9); MCH 23.9 pg (25.7-33.7); MEAN PLT VOLUME 8.9 fl (7.5-11.1); PLATELET COUNT 143 K/MM3 (134-434); RBC 5.81 M/mm3 (4.00-5.60); WHITE BLOOD COUNT 4.1 K/mm3 (4.0-10.0)
[2019-10-20 15:40] LABS: ALBUMIN 3.8 g/dl (3.4-5.0); BILIRUBIN,TOTAL 1.1 mg/dL (0.2-1); BLOOD UREA NITROGEN 7.7 mg/dL (7-18); CALCIUM 8.8 mg/dL (8.5-10.1); POTASSIUM 3.5 mmol/L (3.5-5.1); TOT PROT 7.2 g/dl (6.4-8.2)
--- NOTE | 2019-10-20 17:24 | CONSULT ---
[facility] Psychiatric Consult - Data Date of interview: 10/20/19 Admission source: [facility] Identifying data: Readmission to [facility] at [address] [place] [address] for this 44 y/o AA male, self-referred for detoxification treatment. TAMMY issues : alcohol, cannabis, nicotine. Patient is single, no dependents, homeless, unemployed and supported on food stamps. Substance Abuse History: Discussed with the patient. TAMMY profile as follows : Alcohol. Substance amount: 2 pints vodka. Frequency of use: Daily. Substance route: Oral. Date of Last Use: 10/20/19. First use age 22y. No seiuzres. Blackout: multiple, last was 2 days ago. Eye [place]: yes. Marijuana/Hashis h. Substance amount: 1 blunt. Frequency of use: Less than 3 times per week. Substance route: Smoking. Date of Last Use: 10/19/19. First use age 27 y. Nicotine. Substance amount: 4 ciggs. Frequency of use: Daily. Substance route: Smoking. Date of Last Use: 10/20/19. First use age 27y. - Last Treatment. Date of last treatment: 04/26-05/02/19. Treatment type: Substance Use Disorder (TMAMY). Where was last treatment: Detox. History Source: Patient. Limitations to Obtaining History: No Limitations. Medical History: Patient endorses good general health. Noted history of orthosurgery (left hand). Psychiatric History: Patient reports a history of two psychiatric hospitalizations ([facility] + [facility]). Last ho spitalized in 2016. He has reportedly been diagnosed with MDD and prescribed various medications (trazodone, lexapro, aripriprazole, zolpidem). Mr Escobedo endorses total non-adherence to medications + OPD follow-up. Has been lost to follow-up for months. Patient denies history of suicide attempts. Physical/Sexual Abuse/Trauma History: Patient denies. Additional Comment: Urine drug screen results: THC-Marijuana, BZO- Benzodiazepines. Noted. Mental Status Exam - Mental Status Exam Alert and Oriented to: Time, Place, Person Cognitive Function: Good Patient Appearance: Well Groomed Mood: Withdrawn Affect: Mood Congruent, Constricted Patient Behavior: Fatigued, Cooperative Speech Pattern: Clear, Appropriate Voice Loudness: Normal Thought Process: Intact, Goal Oriented Thought Disorder: Not Present Hallucinations: Denies Suicidal Ideation: Denies Homicidal Ideation: Denies Insight/Judgement: Poor Sleep: Well Appetite: Good Gait/Station: Other (not observed out of bed) Psychiatric Findings - Problem List ([place] 1, 2,3) (1) Alcohol dependence with withdrawal, uncomplicated Current Visit: Yes Status: Acute (2) Cannabis dependence, uncomplicated Current Visit: Yes Status: Chronic (3) Nicotine dependence Current Visit: Yes Status: Chronic Qualifiers: Nicotine product type: cigarettes Substance use status: in withdrawal Qualified Code(s): F17.213 - Nicotine dependence, cigarettes, with withdrawal (4) Substance induced mood disorder Current Visit: Yes Status: Suspected - Initial Treatment Plan Initial Treatment Plan: Psychoeducation. [facility]-ET[facility] services explained to patient. Support. Sleep hygiene. Detoxification. Observation.
[2019-10-20] MEDS: chlordiazePOXIDE HCL 25 MG CAPSULE PO SCH ×2 (17:52→22:52)
[2019-10-20] MEDS: THIAMINE HCL 100 MG TABLET (FP) PO SCH (22:52)
[2019-10-20] MEDS: MELATONIN 5 MG TABLETS PO SCH (22:53)
[2019-10-21] MEDS: hydrOXYzine PAMOATE 25 MG CAPSULE (FP) PO SCH ×5 (07:41→22:11)
[2019-10-21] MEDS: chlordiazePOXIDE HCL 25 MG CAPSULE PO PRN (07:41)
[2019-10-21] MEDS: chlordiazePOXIDE HCL 25 MG CAPSULE PO SCH ×4 (07:44→22:11)
[2019-10-21] MEDS: PRENATAL VITAMINS W/ FOLIC ACID TABLET (FP) PO SCH (10:34)
[2019-10-21] MEDS: NICOTINE 7 MG/24 HOURS TOPICAL PATCH TD SCH (10:36)
--- NOTE | 2019-10-21 14:58 | PN ---
S CIWA - CIWA Score Nausea/Vomitin Muscle Tremors: 2 Anxiety: 2 Agitation: 2 Paroxysmal Sweats: 1-Minimal Palms Moist Orientation: 0-Oriented Tacttile Disturbances: 1-Very Mild Itch/Numbness Auditory Disturbances: 0-None Visual Disturbances: 0-None Headache: 2-Mild CIWA-Ar Total Score: 12 BHS Progress Note (SOAP) Subjective: alert,irritable,anxious,interrupted sleep,tremor,aching pain in the body and back Objective: 10/21/19 14:57 Vital Signs Temperature 97.6 F 10/21/19 12:37 Pulse Rate 84 10/21/19 12:37 Respiratory Rate 18 10/21/19 12:37 Blood Pressure 136/84 10/21/19 12:37 O2 Sat by Pulse Oximetry (%) 99 10/21/19 12:37 10/21/19 14:57 Laboratory Last Values WBC 4.1 K/mm3 (4.0-10.0) 10/20/19 13:10 RBC 5.81 M/mm3 (4.00-5.60) H 10/20/19 13:10 Hgb 13.9 GM/dL (11.7-16.9) 10/20/19 13:10 Hct 44.7 % (35.4-49) 10/20/19 13:10 MCV 77.0 fl (80-96) L 10/20/19 13:10 MCH 23.9 pg (25.7-33.7) L 10/20/19 13:10 MCHC 31.0 g/dl (32.0-35.9) L 10/20/19 13:10 RDW 16.0 % (11.9-15.9) H 10/20/19 13:10 Plt Count 143 K/MM3 (134-434) D 10/20/19 13:10 MPV 8.9 fl (7.5-11.1) 10/20/19 13:10 Sodium 141 mmol/L (136-145) 10/20/19 13:10 Potassium 3.5 mmol/L (3.5-5.1) 10/20/19 13:10 Chloride 104 mmol/L (98-107) 10/20/19 13:10 Carbon Dioxide 26 mmol/L (21-32) 10/20/19 13:10 Anion Gap 11 MMOL/L (8-16) 10/20/19 13:10 BUN 7.7 mg/dL (7-18) 10/20/19 13:10 Creatinine 1.0 mg/dL (0.55-1.3) 10/20/19 13:10 Est GFR (CKD-EPI)AfAm 107.12 10/20/19 13:10 Est GFR (CKD-EPI)NonAf 92.42 10/20/19 13:10 Random Glucose 121 mg/dL (74-106) H 10/20/19 13:10 Calcium 8.8 mg/dL (8.5-10.1) 10/20/19 13:10 Total Bilirubin 1.1 mg/dL (0.2-1) H 10/20/19 13:10 AST 280 U/L (15-37) H 10/20/19 13:10 ALT 194 U/L (13-61) H 10/20/19 13:10 Alkaline Phosphatase 102 U/L (45-117) 10/20/19 13:10 Total Protein 7.2 g/dl (6.4-8.2) 10/20/19 13:10 Albumin 3.8 g/dl (3.4-5.0) 10/20/19 13:10 Syphilis Serology Non-reactive (NONREACTIVE) 10/20/19 13:10 COVID-19 (GIULIANA) Not detected (Not Detected) 10/20/19 14:00 HIV Ag/Ab Combo Qual Negative (NEGATIVE) 10/21/19 08:10 Assessment: 10/21/19 14:57 withdrawal symptom Plan: continue detox librium regimen,fasting glucose in am,initial glucose is 121,ast 280,alt 194,repeat alt,ast,inr in am
[2019-10-21] MEDS: THIAMINE HCL 100 MG TABLET (FP) PO SCH (22:11)
[2019-10-21] MEDS: MELATONIN 5 MG TABLETS PO SCH (22:11)
[2019-10-22] MEDS: METHOCARBAMOL 500 MG TABLET PO PRN (06:16)
[2019-10-22] MEDS: chlordiazePOXIDE HCL 25 MG CAPSULE PO SCH ×4 (06:16→22:06)
[2019-10-22] MEDS: hydrOXYzine PAMOATE 25 MG CAPSULE (FP) PO SCH ×5 (06:16→22:06)
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
[2019-10-22] MEDS: PRENATAL VITAMINS W/ FOLIC ACID TABLET (FP) PO SCH (10:24)
[2019-10-22] MEDS: NICOTINE 7 MG/24 HOURS TOPICAL PATCH TD SCH (10:25)
[2019-10-22 12:32] LABS: INR 0.84 (0.83-1.09); PROTHROMBIN TIME (PATIENT) 9.9 SEC (9.7-13.0)
[2019-10-22 12:38] LABS: GLUCOSE,FASTING 82 mg/dL (74-106); SGOT/AST 87 U/L (15-37); SGPT/ALT 136 U/L (13-61)
--- NOTE | 2019-10-22 13:25 | PN ---
BHS Progress Note Note: LFTs reviewed, trending down Will continue Librium protocol
[2019-10-22] MEDS: MINERAL OIL/PETROLAT/WATER TOPICAL CREAM 113 GM JAR TP SCH ×2 (15:43→22:07)
[2019-10-22] MEDS: BACITRACIN 0.9 GM PACKET TP SCH ×2 (15:43→22:06)
[2019-10-22] MEDS: THIAMINE HCL 100 MG TABLET (FP) PO SCH (22:06)
[2019-10-22] MEDS: MELATONIN 5 MG TABLETS PO SCH (22:07)
[2019-10-23] MEDS ORDERED: chlordiazePOXIDE HCL 10 MG CAPSULE PO PRN
[2019-10-23] MEDS: chlordiazePOXIDE HCL 10 MG CAPSULE PO SCH ×4 (05:33→22:26)
[2019-10-23] MEDS: hydrOXYzine PAMOATE 25 MG CAPSULE (FP) PO SCH ×5 (05:33→22:26)
[2019-10-23] MEDS: NICOTINE 7 MG/24 HOURS TOPICAL PATCH TD SCH (10:41)
[2019-10-23] MEDS: BACITRACIN 0.9 GM PACKET TP SCH ×2 (10:41→22:25)
[2019-10-23] MEDS: MINERAL OIL/PETROLAT/WATER TOPICAL CREAM 113 GM JAR TP SCH ×2 (10:41→22:25)
[2019-10-23] MEDS: PRENATAL VITAMINS W/ FOLIC ACID TABLET (FP) PO SCH (10:41)
[2019-10-23] MEDS: METHOCARBAMOL 500 MG TABLET PO PRN ×2 (10:43→22:27)
--- NOTE | 2019-10-23 10:55 | PN ---
S CIWA - CIWA Score Nausea/Vomitin-No Nausea/No Vomiting Muscle Tremors: None Anxiety: 2 Agitation: 0-Normal Activity Paroxysmal Sweats: 2 Orientation: 0-Oriented Tacttile Disturbances: 0-None Auditory Disturbances: 0-None Visual Disturbances: 0-None Headache: 2-Mild CIWA-Ar Total Score: 6 BHS Progress Note (SOAP) Subjective: c/o anxiety, sweats, and headache. Objective: 10/23/19 10:54 Vital Signs 10/23/19 10/23/19 06:30 09:33 Temperature 97.0 F L 96.6 F L Pulse Rate 68 118 H Respiratory 18 20 Rate Blood Pressure 117/69 122/77 O2 Sat by Pulse 99 99 Oximetry (%) Laboratory Last Values WBC 4.1 K/mm3 (4.0-10.0) 10/20/19 13:10 RBC 5.81 M/mm3 (4.00-5.60) H 10/20/19 13:10 Hgb 13.9 GM/dL (11.7-16.9) 10/20/19 13:10 Hct 44.7 % (35.4-49) 10/20/19 13:10 MCV 77.0 fl (80-96) L 10/20/19 13:10 MCH 23.9 pg (25.7-33.7) L 10/20/19 13:10 MCHC 31.0 g/dl (32.0-35.9) L 10/20/19 13:10 RDW 16.0 % (11.9-15.9) H 10/20/19 13:10 Plt Count 143 K/MM3 (134-434) D 10/20/19 13:10 MPV 8.9 fl (7.5-11.1) 10/20/19 13:10 PT with INR 9.90 SEC (9.7-13.0) 10/22/19 08:40 INR 0.84 (0.83-1.09) 10/22/19 08:40 Sodium 141 mmol/L (136-145) 10/20/19 13:10 Potassium 3.5 mmol/L (3.5-5.1) 10/20/19 13:10 Chloride 104 mmol/L (98-107) 10/20/19 13:10 Carbon Dioxide 26 mmol/L (21-32) 10/20/19 13:10 Anion Gap 11 MMOL/L (8-16) 10/20/19 13:10 BUN 7.7 mg/dL (7-18) 10/20/19 13:10 Creatinine 1.0 mg/dL (0.55-1.3) 10/20/19 13:10 Est GFR (CKD-EPI)AfAm 107.12 10/20/19 13:10 Est GFR (CKD-EPI)NonAf 92.42 10/20/19 13:10 Random Glucose 121 mg/dL (74-106) H 10/20/19 13:10 Fasting Glucose 82 mg/dL (74-106) 10/22/19 08:40 Calcium 8.8 mg/dL (8.5-10.1) 10/20/19 13:10 Total Bilirubin 1.1 mg/dL (0.2-1) H 10/20/19 13:10 AST 87 U/L (15-37) H 10/22/19 08:40 ALT 136 U/L (13-61) H 10/22/19 08:40 Alkaline Phosphatase 102 U/L (45-117) 10/20/19 13:10 Total Protein 7.2 g/dl (6.4-8.2) 10/20/19 13:10 Albumin 3.8 g/dl (3.4-5.0) 10/20/19 13:10 Syphilis Serology Non-reactive (NONREACTIVE) 10/20/19 13:10 COVID-19 (GIULIANA) Not detected (Not Detected) 10/20/19 14:00 HIV Ag/Ab Combo Qual Negative (NEGATIVE) 10/21/19 08:10 Labs noted. Elevated AST/ALT already addressed by the previous provider. Assessment: 10/23/19 10:54 AOX3, in no acute respiratory distress. Full ROM, ambulating in the unit. Withdrawal symptoms. Plan: continue detox.
[2019-10-23] MEDS: MELATONIN 5 MG TABLETS PO SCH (22:26)
[2019-10-23] MEDS: THIAMINE HCL 100 MG TABLET (FP) PO SCH (22:27)
[2019-10-24] MEDS: hydrOXYzine PAMOATE 25 MG CAPSULE (FP) PO SCH ×5 (05:33→22:29)
[2019-10-24] MEDS: chlordiazePOXIDE HCL 10 MG CAPSULE PO SCH ×2 (05:33→18:00)
[2019-10-24] MEDS: BACITRACIN 0.9 GM PACKET TP SCH ×2 (10:47→22:30)
[2019-10-24] MEDS: MINERAL OIL/PETROLAT/WATER TOPICAL CREAM 113 GM JAR TP SCH ×2 (10:47→22:30)
[2019-10-24] MEDS: NICOTINE 7 MG/24 HOURS TOPICAL PATCH TD SCH (10:47)
[2019-10-24] MEDS: PRENATAL VITAMINS W/ FOLIC ACID TABLET (FP) PO SCH (10:47)
--- NOTE | 2019-10-24 11:13 | PN ---
S CIWA - CIWA Score Nausea/Vomitin-No Nausea/No Vomiting Muscle Tremors: 2 Anxiety: 1-Mildly Anxious Agitation: 0-Normal Activity Paroxysmal Sweats: No Perspiration Orientation: 0-Oriented Tacttile Disturbances: 0-None Auditory Disturbances: 0-None Visual Disturbances: 2-Mild Sensitivity Headache: 0-None Present CIWA-Ar Total Score: 5 BHS Progress Note (SOAP) Subjective: 44 years old male was admitted on 10/20/19 for alcohol withdrawal sx management treating with librium detox regiment feels better today less tremor mild anxiety discussing aftercare with staff mr frey [facility] for alcohol abuse treatment Objective: 10/24/19 11:14 Vital Signs - 24 hr 10/23/19 10/23/19 10/23/19 13:18 16:30 21:04 Temperature 97.8 F 98.6 F 97.5 F L Pulse Rate 92 H 79 91 H Respiratory 18 18 18 Rate Blood Pressure 125/76 112/77 139/87 O2 Sat by Pulse 99 99 97 Oximetry (%) 10/24/19 10/24/19 06:20 08:35 Temperature 97.8 F 97.4 F L Pulse Rate 67 86 Respiratory 18 18 Rate Blood Pressure 102/56 L 110/63 O2 Sat by Pulse 98 98 Oximetry (%) Laboratory Tests 10/20/19 10/20/19 10/20/19 13:10 13:10 13:10 WBC 4.1 RBC 5.81 H Hgb 13.9 Hct 44.7 MCV 77.0 L MCH 23.9 L MCHC 31.0 L RDW 16.0 H Plt Count 143 D MPV 8.9 PT with INR INR Sodium 141 Potassium 3.5 Chloride 104 Carbon Dioxide 26 Anion Gap 11 BUN 7.7 Creatinine 1.0 Est GFR (CKD-EPI)AfAm 107.12 Est GFR (CKD-EPI)NonAf 92.42 Random Glucose 121 H Fasting Glucose Calcium 8.8 Total Bilirubin 1.1 H AST 280 H ALT 194 H Alkaline Phosphatase 102 Total Protein 7.2 Albumin 3.8 Syphilis Serology Non-reactive COVID-19 (GIULIANA) HIV Ag/Ab Combo Qual 10/20/19 10/21/19 10/22/19 14:00 08:10 08:40 WBC RBC Hgb Hct MCV MCH MCHC RDW Plt Count MPV PT with INR INR Sodium Potassium Chloride Carbon Dioxide Anion Gap BUN Creatinine Est GFR (CKD-EPI)AfAm Est GFR (CKD-EPI)NonAf Random Glucose Fasting Glucose 82 Calcium Total Bilirubin AST 87 H ALT 136 H Alkaline Phosphatase Total Protein Albumin Syphilis Serology COVID-19 (GIULIANA) Not detected HIV Ag/Ab Combo Qual Negative 10/22/19 08:40 WBC RBC Hgb Hct MCV MCH MCHC RDW Plt Count MPV PT with INR 9.90 INR 0.84 Sodium Potassium Chloride Carbon Dioxide Anion Gap BUN Creatinine Est GFR (CKD-EPI)AfAm Est GFR (CKD-EPI)NonAf Random Glucose Fasting Glucose Calcium Total Bilirubin AST ALT Alkaline Phosphatase Total Protein Albumin Syphilis Serology COVID-19 (GIULIANA) HIV Ag/Ab Combo Qual glucose elevation and ast elevation upon admission subsided throughout the detox stay Assessment: 10/24/19 11:15 alcohol withdrawal Plan: librium regiment
[2019-10-24] MEDS: MELATONIN 5 MG TABLETS PO SCH (22:29)
[2019-10-24] MEDS: THIAMINE HCL 100 MG TABLET (FP) PO SCH (22:30)
[2019-10-25] MEDS ORDERED: chlordiazePOXIDE HCL 10 MG CAPSULE PO ONE (05:00)
[2019-10-25] MEDS: hydrOXYzine PAMOATE 25 MG CAPSULE (FP) PO SCH ×2 (05:51→09:32)
[2019-10-25] MEDS: METHOCARBAMOL 500 MG TABLET PO PRN (05:52)
[2019-10-25 06:50] VITALS: BP 105/65; PULSE 73; TEMP 97.7
[2019-10-25] MEDS: NICOTINE 7 MG/24 HOURS TOPICAL PATCH TD SCH (09:32)
[2019-10-25] MEDS: BACITRACIN 0.9 GM PACKET TP SCH (09:32)
[2019-10-25] MEDS: MINERAL OIL/PETROLAT/WATER TOPICAL CREAM 113 GM JAR TP SCH (09:32)
[2019-10-25] MEDS: PRENATAL VITAMINS W/ FOLIC ACID TABLET (FP) PO SCH (09:32)
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
== END 2019-10-25 09:32 | disposition home or self-care (01) | DRG 775 ==
LOC: YASAS 12:20 → Y3N 13:31
PROVIDERS: ADMIT Allergy & Immunology; ATTEND Allergy & Immunology
PROC: HZ2ZZZZ Detoxification Services for Substance Abuse Treatment (ICD-10-PCS; principal; 2019-10-20)
DX: F10.230 Alcohol dependence with withdrawal, uncomplicated (principal); F12.20 Cannabis dependence, uncomplicated; F17.213 Nicotine dependence, cigarettes, with withdrawal; F19.24 Other psychoactive substance dependence with psychoactive substance-induced mood disorder; F32.9 Major depressive disorder, single episode, unspecified; L85.3 Xerosis cutis; T23.032 Burn of unspecified degree of multiple left fingers (nail), not including thumb; T31.0 Burns involving less than 10% of body surface; T79.9XXD Unspecified early complication of trauma, subsequent encounter; X19.XXXD Contact with other heat and hot substances, subsequent encounter
CPT/HCPCS: 36415; 80053; 82947; 84450; 84460; 85027; 85610; 86780; 87389; Q0162; U0003

== ENCOUNTER 2019-11-15 20:29 | Inpatient (IN) | payer OTHER ==
[2019-11-15 21:05] VITALS: BMI 25.7
--- OUTSIDE RECORDS SUMMARY | 2019-11-15 21:18 | XMS ---
:1975 Author Organization [facility] Name Relationship Address Phone UE, UNEMPLOYED Unavailable Unavailable Unavailable [place] [address] UE Unavailable Unavailable Unavailable [place] [address] JUAN MONROE W spouse 16 JUAN PENA A [phone] [place] [address] Re-disclosure Warning The records that you are about to access may contain information from federally- assisted alcohol or drug abuse programs. If such information is present, then the following federally mandated warning applies: This information has been disclosed to you from records protected by federal confidentiality rules (42 CFR part 2). The federal rules prohibit you from making any further disclosure of this information unless further disclosure is expressly permitted by the written consent of the person to whom it pertains or as otherwise permitted by 42 CFR part 2. A general authorization for the release of medical or other information is NOT sufficient for this purpose. The Federal rules restrict any use of the information to criminally investigate or prosecute any alcohol or drug abuse patient.The records that you are about to access may contain highly sensitive health information, the redisclosure of which is protected by Article 27-F of the [facility] Public Health law. If you continue you may haveaccess to information: Regarding HIV / AIDS; Provided by facilities licensed or operated by the [facility] Office of Mental Health; or Provided by the [facility] Office for People With Developmental Disabilities. If such information is present, then the following [facility] mandated warning applies: This information has been disclosed to you from confidential records which are protected by state law. State law prohibits you from making any further disclosure of this information without the specific written consent of the person to whom it pertains, or as otherwise permitted by law. Any unauthorized further disclosure in violation of state law may result in a fine or group home sentence or both. A general authorization for the release of medical or other information is NOT sufficient authorization for further disclosure. Insurance Providers Payer name Policy type Policy ID Covered Covered libertarian's Policy P kj / Coverage libertarian ID relationship to Jin Inf ormation type jin [place] [id number] SP [id number] [employer] [place] [id number] SP [id number] [employer] [place] [id number] SP [id number] [employer] [place] [id number] SP [id number] 200 [employer] MEDICAID [id number] SP [id number] Results ID Date Data Source [id number] 10/20/2019 02:00:00 PM EDT [facility] Name Value Range Interpretation Description Data Sup porting Code Source(s) Document(s ) SARS [facility] coronavirus 2 RNA This lab was ordered by [facility] Sherri Carrera and reported by [facility]. Procedure
--- NOTE | 2019-11-15 21:26 | HP ---
CIWA Score Nausea/Vomitin-No Nausea/No Vomiting Muscle Tremors: 1-None Visible, but [place] Anxiety: 4-Mod. Anxious/Guarded Agitation: 4-Moderately Restless Paroxysmal Sweats: 4-Forehead w/Sweat Beads Orientation: 0-Oriented Tacttile Disturbances: 0-None Auditory Disturbances: 0-None Visual Disturbances: 0-None Headache: 0-None Present CIWA-Ar Total Score: 13 - Admission Criteria OASAS Guidelines: Admission for Medically Managed Detox: Requires at least one of the followin. CIWA greater than 12 2. Seizures within the past 24 hours 3. Delirium tremens within the past 24 hours 4. Hallucinations within the past 24 hours 5. Acute intervention needed for co occurring medical disorder 6. Acute intervention needed for co occurring psychiatric disorder 7. Severe withdrawal that cannot be handled at a lower level of care (continued vomiting, continued diarrhea, abnormal vital signs) requiring intravenous medication and/or fluids 8. Patient presents the following: CIWA greater than 12 Admission Criteria Met: Admission criteria met Admitting History and Physical - Past Medical History Psych: Yes: Depression - Smoking History Smoking history: Current every day smoker Have you smoked in the past 12 months: Yes Aproximately how many cigarettes per day: 4 - Social History History of Recent Travel: No Admission ROS S - HPI Chief Complaint: seeking detox for alcohol Allergies/Adverse Reactions: Allergies Allergy/AdvReac Type Severity Reaction Status Date / Time No Known Allergies Allergy Verified 10/20/19 13:11 History of Present Illness: 44 Y.O. MALE WITH HX/O ALCOHOLISM HHERE FOR DETOX. CLIENT IS SELF REFERRED. KNOWN TO PROGRAM LAST ADMISSION 21 DAYS AGO. HE REPORTS RELAPSING IMMEDIATELY AFTER AND WAS ADMITTED TO [facility] 3 DAYS AGO BUT GOT KICKED TODAY OUT FOR BEHAVIORAL ISSUES THROWING A PITCHER " OUT OF FRUSTRATION. CLIENT STATES HE HAS BEEN DRINKING DAILY TO AVOID WITHDRAWAL SX'S. 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 + HX/O BLACK OUT BUT DENIES SEIZURES D/O. HE ALSO REPORTS COCAINE AND CANNABIS ABUSE WELL. DENIES IVDU. DENIES ANY CLEAN TIME IN THE PAST 12 MONTHS. LONGEST CLEAN TIME 9 MONTHS WHICH HE REPORTS WAS A FEW YEARS AGO. HE IS CURRENTLY HOMELESS, UNEMPLOYED, DENIES LEGALS CLIENT REPORTS FEELING OF DEPRESSION GIVEN CURRENT SITUATION BUT DENIES SI/HI. REQUESTING PSYCH CONSULT. HE IS ALSO SEEKING REHAB AFTER DETOX Exam Limitations: Intoxication - Ebola screening Have you traveled outside of the country in the last 21 days: No Have you had contact with anyone from an Ebola affected area: No Have you been sick,other than usual withdrawal symptoms: No Do you have a fever: No - Review of Systems Constitutional: Changes in sleep EENT: reports: No Symptoms Reported Respiratory: reports: No Symptoms reported Cardiac: reports: No Symptoms Reported GI: reports: Poor Fluid Intake : reports: No Symptoms Reported Musculoskeletal: reports: No Symptoms Reported Integumentary: reports: No Symptoms Reported Neuro: reports: Tremors Endocrine: reports: No Symptoms Reported Hematology: reports: No Symptoms Reported Psychiatric: reports: Orientated x3, Anxious, Depressed Other Systems: Reviewed and Negative Patient History - Patient Medical History Hx Anemia: No Hx Asthma: No Hx Chronic Obstructive Pulmonary Disease (COPD): No Hx Cancer: No Hx Cardiac Disorders: No Hx Congestive Heart Failure: No Hx Hypertension: No Hx Hypercholesterolemia: No HX Cerebrovascular Accident: No Hx Seizures: No Hx Dementia: No Hx Diabetes: No Hx Gastrointestinal Disorders: No Hx Liver Disease: No Hx Genitourinary Disorders: No Hx Sexually Transmitted Disorders: No Hx Renal Disease (ESRD): No Hx Thyroid Disease: No Hx Human Immunodeficiency Virus (HIV): No Hx Hepatitis C: No Hx Depression: Yes Hx Suicide Attempt: No Hx Bipolar Disorder: No Hx Schizophrenia: No Other Medical History: DENIES - Patient Surgical History Past Surgical History: Yes Hx Neurologic Surgery: No Hx Cataract Extraction: No Hx Cardiac Surgery: No Hx Lung Surgery: No Hx Breast Surgery: No Hx Breast Biopsy: No Hx Abdominal Surgery: No Hx Appendectomy: No Hx Cholecystectomy: No Hx Genitourinary Surgery: No Hx Section: No Hx Orthopedic Surgery: No Other Surgical History: LEFT HAND SURGERY 2012 Anesthesia Reaction: No - PPD History Previous Implant?: Yes Documented Results: Negative w/proof Implanted On Prior R Admission?: Yes Date: 02/24/19 Results: 0 mm PPD to be Administered?: No - Smoking Cessation Smoking history: Current every day smoker Have you smoked in the past 12 months: Yes Aproximately how many cigarettes per day: 4 Cigars Per Day: 0 Hx Chewing Tobacco Use: No Initiated information on smoking cessation: Yes 'Breaking Loose' booklet given: 11/15/19 - Substance & Tx. History Hx Alcohol Use: Yes Hx Substance Use: Yes Substance Use Type: Alcohol, Cocaine, Marijuana Hx Substance Use Treatment: Yes ([facility]) - Substances abused Alcohol Other (specify): VODKA Substance route: Oral Frequency: Daily Amount used: 4 PINTS Age of first use: 22 Date of last use: 11/15/19 Cocaine Substance route: Smoking (SNIFF) Frequency: No use in 30 days Amount used: 2 GRAMS Age of first use: 27 Date of last use: 10/17/19 Admission Physical Exam S - Vital Signs Vital Signs: Vital Signs - 24 hr 11/15/19 21:04 Temperature 97.7 F Pulse Rate 91 H Respiratory 18 Rate Blood Pressure 120/74 - Physical General Appearance: Yes: Alcohol on Breath, Intoxicated, Tremorous, Anxious HEENTM: Yes: EOMI, Normocephalic, Normal Voice, SUSIE, Pharynx Normal, Other (DRY MUCUS MEMBRANES) Respiratory: Yes: Chest Non-Tender, Lungs Clear, Normal Breath Sounds, No Respiratory Distress, No Accessory Muscle Use Neck: Yes: No masses,lesions,Nodules, Supple, Trachea in good position Breast: Yes: Breasts Symetrical Cardiology: Yes: Regular Rhythm, S1, S2, Tachycardia Abdominal: Yes: Non Tender, Soft, Increased Bowel Sounds Genitourinary: Yes: Within Normal Limits Back: Yes: Normal Inspection Musculoskeletal: Yes: full range of Motion, Gait Steady, Other (CONTRACTED LEFT AND RIGHT 4TH DIGITS) Extremities: Yes: Normal Capillary Refill, Normal Range of Motion, Non-Tender, Tremors, Other (redness 2/2 to alcohol) Neurological: Yes: Fully Oriented, Alert, Motor Strength 5/5, Depressed Affect Integumentary: Yes: Clam[place] Lymphatic: Yes: Within Normal Limits - Diagnostic (1) Alcohol dependence with withdrawal, unspecified Current Visit: Yes Status: Acute Qualifiers: Complication of substance-induced condition: uncomplicated Qualified Code(s): F10.230 - Alcohol dependence with withdrawal, uncomplicated (2) Alcohol intoxication Current Visit: Yes Status: Acute Qualifiers: Complication of substance-induced condition: uncomplicated Qualified Code(s): F10.920 - Alcohol use, unspecified with intoxication, uncomplicated (3) At risk for dehydration due to poor fluid intake Current Visit: Yes Status: Acute (4) Cocaine dependence Current Visit: Yes Status: Chronic Qualifiers: Substance use status: uncomplicated Qualified Code(s): F14.20 - Cocaine dependence, uncomplicated (5) Nicotine dependence Current Visit: Yes Status: Chronic Qualifiers: Nicotine product type: cigarettes Substance use status: uncomplicated Qualified Code(s): F17.210 - Nicotine dependence, cigarettes, uncomplicated (6) Cannabis dependence, uncomplicated Current Visit: Yes Status: Chronic (7) Drug-induced mood disorder Current Visit: Yes Status: Suspected (8) Dry mucous membranes Current Visit: Yes Status: Acute Cleared for Admission S - Detox or Rehab [facility] Level of Care: Medically Managed (DEHYDRATED, INTOXICATION WITH ONSET OF WITHDRAWAL SX'S) Detox Regimen/Protocol: Librium Claeared for Rehab Admission: No Breathalyzer - Breathalyzer Breathalyzer: 0.77 Urine Drug Screen - Test Device Lot number: [id number] Expiration date: 05/25/21 - Control Is test valid?: Yes - Results Drug screen NEGATIVE: No Urine drug screen results: BZO-Benzodiazepines Inpatient Rehab Admission - Rehab Decision to Admit Inpatient rehab admission?: No
[2019-11-15] MEDS ORDERED: BISMUTH SUBSALICYLATE 524 MG/30 ML UD PO PRN (21:34)
[2019-11-15] MEDS ORDERED: IBUPROFEN 400 MG TABLET (FP) PO PRN (21:34)
[2019-11-15] MEDS ORDERED: P-EPHED 60MG/TRIPROLIDI 2.5MG TABLET PO PRN (21:34)
[2019-11-15] MEDS ORDERED: NICOTINE POLACRILEX 2 MG GUM BUC PRN (21:34)
[2019-11-15] MEDS ORDERED: ONDANSETRON *ODT* 4 MG TABLET SL PRN (21:34)
[2019-11-15] MEDS ORDERED: MAG HYDROX/AL HYDROX/SIMETH 30 ML UNIT-DOSE CUP PO PRN (21:34)
[2019-11-15] MEDS ORDERED: MAGNESIUM HYDROX 2400MG/30ML ORAL SUSPENSION 30 ML CUP PO PRN (21:34)
[2019-11-15] MEDS ORDERED: MENTHOL/PHENOL 1 EACH UD MM PRN (21:34)
[2019-11-15] MEDS ORDERED: chlordiazePOXIDE HCL 25 MG CAPSULE PO PRN (21:34)
[2019-11-15] MEDS ORDERED: METHOCARBAMOL 500 MG TABLET PO PRN (21:34)
[2019-11-15] MEDS ORDERED: guaiFENesin 200 MG/10 ML 10 ML UNIT-DOSE CUPS PO PRN (21:34)
[2019-11-15] MEDS ORDERED: DICYCLOMINE HCL 10 MG CAPSULE PO PRN (21:34)
[2019-11-15] MEDS ORDERED: ACETAMINOPHEN 325 MG TABLET (FP) PO PRN ×2 (21:34)
[2019-11-15] MEDS ORDERED: MAGNESIUM CITRATE 300 ML BOTTLE PO PRN (21:34)
--- OUTSIDE RECORDS SUMMARY | 2019-11-15 22:22 | XMS ---
:1975 Author Organization [facility] Support Name Relationship Address Phone UE, UNEMPLOYED Unavailable Unavailable Unavailable [place] [address] UE Unavailable Unavailable Unavailable [place] [address] JUAN MONROE W spouse 16 JUAN PENA A [phone] [place] [address] Re-disclosure Warning The records that you are [...] is protected by Article 27-F of the [facility] Public Health law. If you continue you may haveaccess to information: Regarding HIV / AIDS; Provided by facilities licensed or operated by the [facility] Office of Mental Health; or Provided by the [facility] Office for People With Developmental Disabilities. If such information is present, then the following [facility] mandated warning applies: This information has been [...] law may result in a fine or senior living sentence or both. A general authorization for the release of medical or other information is NOT sufficient authorization for further disclosure. Insurance Providers Payer name Policy type Policy ID Covered Covered constitution party's Policy P kj / Coverage constitution party ID relationship to Jin Inf ormation type jin [place] [id number] SP [id number] [employer] [place] [id number] SP [id number] 200 [employer] [place] [id number] SP [id number] 200 [employer] [place] [id number] SP [id number] 200 [employer] [place] [id number] SP [id number] 200 [employer] STRGY[employer]AFF MEDICAID [id number] SP [id number] Results ID Date Data Source [id number] 10/20/2019 02:00:00 PM EDT [facility] Name Value Range Interpretation Description Data Sup porting Code Source(s) Document(s ) SARS [facility] coronavirus 2 RNA This lab was ordered by [facility] Sherri Edwards ct Bill Inter and reported by [facility]. Procedure
[2019-11-15] MEDS: chlordiazePOXIDE HCL 25 MG CAPSULE PO SCH (23:08)
[2019-11-15] MEDS: MELATONIN 5 MG TABLETS PO SCH (23:08)
[2019-11-15] MEDS: THIAMINE HCL 100 MG TABLET (FP) PO SCH (23:08)
[2019-11-16] MEDS: chlordiazePOXIDE HCL 25 MG CAPSULE PO SCH ×4 (05:26→22:03)
[2019-11-16] MEDS ORDERED: FLU VACCINE (FLULAVAL) PF 60 MCG/0.5 ML SYRINGE 2020-2021 IM ONE (10:00)
[2019-11-16] MEDS: NICOTINE 14 MG/24 HOURS TOPICAL PATCH TD SCH (10:08)
[2019-11-16] MEDS: PRENATAL VITAMINS W/ FOLIC ACID TABLET (FP) PO SCH (10:08)
--- NOTE | 2019-11-16 10:48 | PN ---
S CIWA - CIWA Score Nausea/Vomitin Muscle Tremors: 2 Anxiety: 2 Agitation: 2 Paroxysmal Sweats: No Perspiration Orientation: 0-Oriented Tacttile Disturbances: 1-Very Mild Itch/Numbness Auditory Disturbances: 0-None Visual Disturbances: 0-None Headache: 2-Mild CIWA-Ar Total Score: 11 S Progress Note (SOAP) Subjective: alert,irritable,anxious,interrupted sleep,tremor,aching pain body and back Objective: 11/16/19 16:31 Vital Signs Temperature 97.5 F L 11/16/19 12:30 Pulse Rate 84 11/16/19 12:30 Respiratory Rate 16 11/16/19 12:30 Blood Pressure 100/61 11/16/19 12:30 O2 Sat by Pulse Oximetry (%) 100 11/16/19 12:30 Laboratory Last Values WBC 3.8 K/mm3 (4.0-10.0) L 11/16/19 07:15 RBC 4.94 M/mm3 (4.00-5.60) 11/16/19 07:15 Hgb 12.0 GM/dL (11.7-16.9) 11/16/19 07:15 Hct 38.3 % (35.4-49) 11/16/19 07:15 MCV 77.5 fl (80-96) L 11/16/19 07:15 MCH 24.4 pg (25.7-33.7) L 11/16/19 07:15 MCHC 31.5 g/dl (32.0-35.9) L 11/16/19 07:15 RDW 15.9 % (11.9-15.9) 11/16/19 07:15 Plt Count 100 K/MM3 (134-434) L D 11/16/19 07:15 MPV 9.0 fl (7.5-11.1) 11/16/19 07:15 Sodium 141 mmol/L (136-145) 11/16/19 07:00 Potassium 4.1 mmol/L (3.5-5.1) 11/16/19 07:00 Chloride 110 mmol/L (98-107) H 11/16/19 07:00 Carbon Dioxide 25 mmol/L (21-32) 11/16/19 07:00 Anion Gap 7 MMOL/L (8-16) L 11/16/19 07:00 BUN 15.4 mg/dL (7-18) 11/16/19 07:00 Creatinine 0.8 mg/dL (0.55-1.3) 11/16/19 07:00 Est GFR (CKD-EPI)AfAm 127.70 11/16/19 07:00 Est GFR (CKD-EPI)NonAf 110.18 11/16/19 07:00 Random Glucose 86 mg/dL (74-106) 11/16/19 07:00 Calcium 8.5 mg/dL (8.5-10.1) 11/16/19 07:00 Total Bilirubin 0.6 mg/dL (0.2-1) 11/16/19 07:00 AST 39 U/L (15-37) H 11/16/19 07:00 ALT 59 U/L (13-61) 11/16/19 07:00 Alkaline Phosphatase 83 U/L (45-117) 11/16/19 07:00 Total Protein 6.4 g/dl (6.4-8.2) 11/16/19 07:00 Albumin 3.3 g/dl (3.4-5.0) L 11/16/19 07:00 Syphilis Serology Non-reactive (NONREACTIVE) 11/15/19 07:00 HIV Ag/Ab Combo Qual Negative (NEGATIVE) 11/16/19 07:00 Assessment: 11/16/19 16:32 withdrawal symptom Plan: continue detox librium regimen,fluid
[2019-11-16 10:50] LABS: HEMATOCRIT 38.3 % (35.4-49); MCH 24.4 pg (25.7-33.7); MCHC 31.5 g/dl (32.0-35.9); MEAN CELL VOLUME 77.5 fl (80-96); PLATELET COUNT 100 K/MM3 (134-434); RBC 4.94 M/mm3 (4.00-5.60); RDW 15.9 % (11.9-15.9); WHITE BLOOD COUNT 3.8 K/mm3 (4.0-10.0)
[2019-11-16 10:59] LABS: ALBUMIN 3.3 g/dl (3.4-5.0); BLOOD UREA NITROGEN 15.4 mg/dL (7-18); CALCIUM 8.5 mg/dL (8.5-10.1); POTASSIUM 4.1 mmol/L (3.5-5.1)
[2019-11-16 11:01] LABS: BILIRUBIN,TOTAL 0.6 mg/dL (0.2-1); CREATININE 0.8 mg/dL (0.55-1.3); TOT PROT 6.4 g/dl (6.4-8.2)
--- NOTE | 2019-11-16 16:46 | CONSULT ---
[facility] Psychiatric Consult - Data Date of interview: 11/16/19 Admission source: [facility] Identifying data: Readmission to [address] [place] [address] for this 44 y/o AA male, self-referred for detoxification treatment (last seen at [facility] on 10/20/19). TAMMY issues : alcohol, cannabis, nicotine, cocaine (sporadic use). Patient is single, no dependents, homeless, unemployed and supported on food stamps. Substance Abuse History: Discussed. TAMMY profile as follows : Smoking history: Current every day smoker. Have you smoked in the past 12 months: Yes. Approximately how many cigarettes per day: 4. Cigars Per Day: 0. Hx Chewing Tobacco Use: No. Initiated information on smoking cessation: Yes. 'Breaking Loose' booklet given: 11/15/19. - Substance & Tx. History. Hx Alcohol Use: Yes. Hx Substance Use: Yes. Substance Use Type: Alcohol, Cocaine, Marijuana. Hx Substance Use Treatment: Yes ([facility]). - Substances abused. Alcohol. Other (specify): VODKA. Substance route: Oral. Frequency: Daily. Amount used: 4 PINTS. Age of first use: 22. Date of last use: 11/15/19. Cocaine. Substance route: Smoking (SNIFF). Frequency: No use in 30 days. Amount used: 2 GRAMS. Age of first use: 27. Date of last use: 10/17/19. Patient is a frequent user of TAMMY treatment services. Medical History: Patient endorses good general health. Noted history of orthosurgery (left hand) Psychiatric History: No changes in longitudinal history since recent encounter of 10/20/19. History is consistent with an account of two psychiatric hospitalizations ([facility] + [facility]). Last hospitalized in 2016. He has reportedly been diagnosed with MDD and prescribed various medications (trazodone, lexapro, aripriprazole, zolpidem). Mr Escobedo endorses total non-adherence to medications + OPD follow-up. Has been lost to follow-up for months. Patient denies history of suicide attempts. Physical/Sexual Abuse/Trauma History: Patient denies. Additional Comment: Urine drug screen results: BZO-Benzodiazepines. Noted. Mental Status Exam - Mental Status Exam Alert and Oriented to: Time, Place, Person Cognitive Function: Good Patient Appearance: Well Groomed Mood: Withdrawn, Hopeful Affect: Appropriate, Normal Range Patient Behavior: Fatigued, Appropriate, Cooperative Speech Pattern: Clear, Appropriate Voice Loudness: Normal Thought Process: Intact, Goal Oriented Thought Disorder: Not Present Hallucinations: Denies Suicidal Ideation: Denies Homicidal Ideation: Denies Insight/Judgement: Poor Sleep: Well Appetite: Good Gait/Station: Normal Psychiatric Findings - Problem List ([place] 1, 2,3) (1) Alcohol dependence with withdrawal, unspecified Current Visit: Yes Status: Acute Qualifiers: Complication of substance-induced condition: uncomplicated Qualified Code(s): F10.230 - Alcohol dependence with withdrawal, uncomplicated (2) Cannabis dependence, uncomplicated Current Visit: Yes Status: Chronic (3) Nicotine dependence Current Visit: Yes Status: Chronic Qualifiers: Nicotine product type: cigarettes Substance use status: uncomplicated Qualified Code(s): F17.210 - Nicotine dependence, cigarettes, uncomplicated (4) Substance induced mood disorder Current Visit: Yes Status: Chronic - Initial Treatment Plan Initial Treatment Plan: Psychoeducation. Sleep hygiene. Detoxification in progress. Observation.
[2019-11-16 21:15] VITALS: TEMP 97.1
[2019-11-16] MEDS: THIAMINE HCL 100 MG TABLET (FP) PO SCH (22:03)
[2019-11-16] MEDS: MELATONIN 5 MG TABLETS PO SCH (22:03)
[2019-11-17] MEDS ORDERED: chlordiazePOXIDE HCL 25 MG CAPSULE PO SCH (05:00)
[2019-11-17 09:43] VITALS: BP 130/94; PULSE 93
[2019-11-17] MEDS: PRENATAL VITAMINS W/ FOLIC ACID TABLET (FP) PO SCH (10:00)
[2019-11-17] MEDS: NICOTINE 14 MG/24 HOURS TOPICAL PATCH TD SCH (10:00)
--- NOTE | 2019-11-17 18:57 | PN ---
[facility] CIWA - CIWA Score Nausea/Vomitin-Mild Nausea/No Vomiting Muscle Tremors: 2 Anxiety: 2 Agitation: 2 Paroxysmal Sweats: No Perspiration Orientation: 0-Oriented Tacttile Disturbances: 1-Very Mild Itch/Numbness Auditory Disturbances: 0-None Visual Disturbances: 0-None Headache: 2-Mild CIWA-Ar Total Score: 10 S Progress Note (SOAP) Subjective: alert,irritable,anxious,interrupted sleep,tremor,aching pain Objective: 11/17/19 18:56 Vital Signs Temperature 97.1 F L 11/17/19 08:58 Pulse Rate 93 H 11/17/19 08:58 Respiratory Rate 18 11/17/19 08:58 Blood Pressure 130/94 11/17/19 08:58 O2 Sat by Pulse Oximetry (%) 98 11/17/19 08:58 Laboratory Last Values WBC 3.8 K/mm3 (4.0-10.0) L 11/16/19 07:15 RBC 4.94 M/mm3 (4.00-5.60) 11/16/19 07:15 Hgb 12.0 GM/dL (11.7-16.9) 11/16/19 07:15 Hct 38.3 % (35.4-49) 11/16/19 07:15 MCV 77.5 fl (80-96) L 11/16/19 07:15 MCH 24.4 pg (25.7-33.7) L 11/16/19 07:15 MCHC 31.5 g/dl (32.0-35.9) L 11/16/19 07:15 RDW 15.9 % (11.9-15.9) 11/16/19 07:15 Plt Count 100 K/MM3 (134-434) L D 11/16/19 07:15 MPV 9.0 fl (7.5-11.1) 11/16/19 07:15 Sodium 141 mmol/L (136-145) 11/16/19 07:00 Potassium 4.1 mmol/L (3.5-5.1) 11/16/19 07:00 Chloride 110 mmol/L (98-107) H 11/16/19 07:00 Carbon Dioxide 25 mmol/L (21-32) 11/16/19 07:00 Anion Gap 7 MMOL/L (8-16) L 11/16/19 07:00 BUN 15.4 mg/dL (7-18) 11/16/19 07:00 Creatinine 0.8 mg/dL (0.55-1.3) 11/16/19 07:00 Est GFR (CKD-EPI)AfAm 127.70 11/16/19 07:00 Est GFR (CKD-EPI)NonAf 110.18 11/16/19 07:00 Random Glucose 86 mg/dL (74-106) 11/16/19 07:00 Calcium 8.5 mg/dL (8.5-10.1) 11/16/19 07:00 Total Bilirubin 0.6 mg/dL (0.2-1) 11/16/19 07:00 AST 39 U/L (15-37) H 11/16/19 07:00 ALT 59 U/L (13-61) 11/16/19 07:00 Alkaline Phosphatase 83 U/L (45-117) 11/16/19 07:00 Total Protein 6.4 g/dl (6.4-8.2) 11/16/19 07:00 Albumin 3.3 g/dl (3.4-5.0) L 11/16/19 07:00 Syphilis Serology Non-reactive (NONREACTIVE) 11/15/19 07:00 COVID-19 (GIULIANA) Not detected (Not Detected) 11/15/19 22:20 HIV Ag/Ab Combo Qual Negative (NEGATIVE) 11/16/19 07:00 Assessment: 11/17/19 18:56 withdrawal symptom Plan: continue detox librium regimen
--- NOTE | 2019-11-17 19:02 | DS ---
[facility] Detox Discharge Summary Admission Date: 11/15/19 Discharge Date: 11/17/19 - History Present History: Alcohol Dependence, Cannabis Dependence, Cocaine Dependence Additional Comments: alert,oriented x 3 ambulation on the unit lung clear on auscultation bilaterally no abdominal pain patient did not want to complete treatment,high risk of relapsing explained,understood, signed release against medical advise Pertinent Past History: nicotine dependence - Physical Exam Results Vital Signs: Vital Signs Temperature 97.1 F L 11/17/19 08:58 Pulse Rate 93 H 11/17/19 08:58 Respiratory Rate 18 11/17/19 08:58 Blood Pressure 130/94 11/17/19 08:58 O2 Sat by Pulse Oximetry (%) 98 11/17/19 08:58 Pertinent Admission Physical Exam Findings: withdrawal sins and symptom Laboratory Last Values WBC 3.8 K/mm3 (4.0-10.0) L 11/16/19 07:15 RBC 4.94 M/mm3 (4.00-5.60) 11/16/19 07:15 Hgb 12.0 GM/dL (11.7-16.9) 11/16/19 07:15 Hct 38.3 % (35.4-49) 11/16/19 07:15 MCV 77.5 fl (80-96) L 11/16/19 07:15 MCH 24.4 pg (25.7-33.7) L 11/16/19 07:15 MCHC 31.5 g/dl (32.0-35.9) L 11/16/19 07:15 RDW 15.9 % (11.9-15.9) 11/16/19 07:15 Plt Count 100 K/MM3 (134-434) L D 11/16/19 07:15 MPV 9.0 fl (7.5-11.1) 11/16/19 07:15 Sodium 141 mmol/L (136-145) 11/16/19 07:00 Potassium 4.1 mmol/L (3.5-5.1) 11/16/19 07:00 Chloride 110 mmol/L (98-107) H 11/16/19 07:00 Carbon Dioxide 25 mmol/L (21-32) 11/16/19 07:00 Anion Gap 7 MMOL/L (8-16) L 11/16/19 07:00 BUN 15.4 mg/dL (7-18) 11/16/19 07:00 Creatinine 0.8 mg/dL (0.55-1.3) 11/16/19 07:00 Est GFR (CKD-EPI)AfAm 127.70 11/16/19 07:00 Est GFR (CKD-EPI)NonAf 110.18 11/16/19 07:00 Random Glucose 86 mg/dL (74-106) 11/16/19 07:00 Calcium 8.5 mg/dL (8.5-10.1) 11/16/19 07:00 Total Bilirubin 0.6 mg/dL (0.2-1) 11/16/19 07:00 AST 39 U/L (15-37) H 11/16/19 07:00 ALT 59 U/L (13-61) 11/16/19 07:00 Alkaline Phosphatase 83 U/L (45-117) 11/16/19 07:00 Total Protein 6.4 g/dl (6.4-8.2) 11/16/19 07:00 Albumin 3.3 g/dl (3.4-5.0) L 11/16/19 07:00 Syphilis Serology Non-reactive (NONREACTIVE) 11/15/19 07:00 COVID-19 (GIULIANA) Not detected (Not Detected) 11/15/19 22:20 HIV Ag/Ab Combo Qual Negative (NEGATIVE) 11/16/19 07:00 Vital Signs Temperature 97.1 F L 11/17/19 08:58 Pulse Rate 93 H 11/17/19 08:58 Respiratory Rate 18 11/17/19 08:58 Blood Pressure 130/94 11/17/19 08:58 O2 Sat by Pulse Oximetry (%) 98 11/17/19 08:58 - Medication Discharge Medications: Ambulatory Orders NK [No Known Home Medication] 09/04/17 - AMA Did Patient Leave Against Medical Advice: Yes
[2019-11-18] MEDS ORDERED: chlordiazePOXIDE HCL 10 MG CAPSULE PO PRN
[2019-11-18] MEDS ORDERED: chlordiazePOXIDE HCL 10 MG CAPSULE PO SCH (05:00)
[2019-11-19] MEDS ORDERED: chlordiazePOXIDE HCL 10 MG CAPSULE PO SCH (05:00)
[2019-11-20] MEDS ORDERED: chlordiazePOXIDE HCL 10 MG CAPSULE PO ONE (05:00)
== END 2019-11-17 10:03 | disposition left against medical advice (07) | DRG 770 ==
LOC: YASAS 20:29 → Y3N 22:18
PROVIDERS: ADMIT Allergy & Immunology; ATTEND Allergy & Immunology
PROC: HZ2ZZZZ Detoxification Services for Substance Abuse Treatment (ICD-10-PCS; principal; 2019-11-15)
DX: F10.230 Alcohol dependence with withdrawal, uncomplicated (principal); F14.10 Cocaine abuse, uncomplicated; F12.20 Cannabis dependence, uncomplicated; F17.210 Nicotine dependence, cigarettes, uncomplicated; F10.220 Alcohol dependence with intoxication, uncomplicated; F19.24 Other psychoactive substance dependence with psychoactive substance-induced mood disorder; F32.9 Major depressive disorder, single episode, unspecified; R63.8 Other symptoms and signs concerning food and fluid intake; R68.2 Dry mouth, unspecified; M20.092 Other deformity of left finger(s); M20.091 Other deformity of right finger(s); Z98.890 Other specified postprocedural states; Z56.0 Unemployment, unspecified; Z59.0 Homelessness
CPT/HCPCS: 36415; 80053; 85027; 86780; 87389; G0008; Q2036; U0003

== ENCOUNTER 2021-06-20 10:14 | Inpatient (IN) | payer OTHER ==
[2021-06-20 10:53] VITALS: BMI 21.3
[2021-06-20] MEDS ORDERED: MAGNESIUM CITRATE 300 ML BOTTLE PO PRN (11:22)
[2021-06-20] MEDS ORDERED: MAGNESIUM HYDROX 2400MG/30ML ORAL SUSPENSION 30 ML CUP PO PRN (11:22)
[2021-06-20] MEDS ORDERED: MAG HYDROX/AL HYDROX/SIMETH 30 ML UNIT-DOSE CUP PO PRN (11:22)
[2021-06-20] MEDS ORDERED: NALOXONE HCL (KLOXXADO) 8 MG SPRAY NS PRN (11:22)
[2021-06-20] MEDS ORDERED: IBUPROFEN 400 MG TABLET (FP) PO PRN (11:22)
[2021-06-20] MEDS ORDERED: ONDANSETRON *ODT* 4 MG TABLET SL PRN (11:22)
[2021-06-20] MEDS ORDERED: BISMUTH SUBSALICYLATE 262 MG/15 ML BTL PO PRN (11:22)
[2021-06-20] MEDS ORDERED: LOPERAMIDE HCL 2 MG CAPSULE PO PRN (11:22)
[2021-06-20] MEDS ORDERED: BENZOCAINE/MENTHOL (CHLORASEPTIC ) LOZENGE MM PRN (11:22)
[2021-06-20] MEDS ORDERED: NICOTINE 10 MG CARTRIDGE (INHALER) IH PRN (11:22)
[2021-06-20] MEDS ORDERED: DICYCLOMINE HCL 10 MG CAPSULE PO PRN (11:22)
[2021-06-20] MEDS ORDERED: ACETAMINOPHEN 325 MG TABLET (FP) PO PRN ×2 (11:22)
[2021-06-20] MEDS ORDERED: LORazepam 1 MG TABLET PO PRN (11:22)
[2021-06-20] MEDS ORDERED: LORazepam 1 MG TABLET ONE (12:31)
[2021-06-20] MEDS: METHOCARBAMOL 500 MG TABLET PO PRN (12:56)
[2021-06-20] MEDS: hydrOXYzine PAMOATE 25 MG CAPSULE (FP) PO SCH ×3 (13:00→22:35)
[2021-06-20] MEDS: LORazepam 2 MG TABLET PO SCH ×2 (17:51→22:27)
[2021-06-20 19:44] LABS: HIV INTERPRETATION NEGATIVE (NEGATIVE)
[2021-06-20] MEDS: guaiFENesin 200 MG/10 ML 10 ML UNIT-DOSE CUPS PO PRN (22:27)
[2021-06-20] MEDS: MELATONIN 5 MG TABLETS PO SCH (22:30)
[2021-06-20] MEDS: THIAMINE HCL 100 MG TABLET (FP) PO SCH (22:35)
[2021-06-21] MEDS: hydrOXYzine PAMOATE 25 MG CAPSULE (FP) PO SCH ×5 (05:39→22:35)
[2021-06-21] MEDS: LORazepam 2 MG TABLET PO SCH ×4 (05:39→22:36)
[2021-06-21] MEDS: guaiFENesin 200 MG/10 ML 10 ML UNIT-DOSE CUPS PO PRN ×2 (05:41→10:36)
[2021-06-21] MEDS: PRENATAL VITAMINS W/ FOLIC ACID TABLET (FP) PO SCH (10:34)
[2021-06-21 11:08] LABS: HEMATOCRIT 36.7 % (35.4-49); HEMOGLOBIN 12.7 GM/dL (11.7-16.9); MCHC 34.6 g/dl (32.0-35.9); MEAN CELL VOLUME 80.9 fl (80-96); MEAN PLT VOLUME 9.5 fl (7.5-11.1); PLATELET COUNT 279 10^3/uL (134-434); RBC 4.54 M/mm3 (4.00-5.60); RDW 14.3 % (11.9-15.9); WHITE BLOOD COUNT 10.7 K/mm3 (4.0-10.0)
[2021-06-21 11:29] LABS: BLOOD UREA NITROGEN 13.6 mg/dL (7-18)
[2021-06-21 11:31] LABS: BILIRUBIN,TOTAL 1.4 mg/dL (0.2-1)
[2021-06-21 11:32] LABS: CREATININE 1.1 mg/dL (0.55-1.3)
[2021-06-21 11:34] LABS: ALBUMIN 3.4 g/dl (3.4-5.0)
[2021-06-21 11:35] LABS: CALCIUM 9.4 mg/dL (8.5-10.1)
[2021-06-21 11:41] LABS: TOT PROT 7.1 g/dl (6.4-8.2)
[2021-06-21] MEDS: MELATONIN 5 MG TABLETS PO SCH (22:35)
[2021-06-21] MEDS: THIAMINE HCL 100 MG TABLET (FP) PO SCH (22:44)
[2021-06-22] MEDS: LORazepam 1 MG TABLET PO SCH ×4 (05:51→22:26)
[2021-06-22] MEDS: hydrOXYzine PAMOATE 25 MG CAPSULE (FP) PO SCH ×5 (05:52→22:24)
[2021-06-22 10:09] LABS: SARS-CoV-2 NAA Not Detected (Not Detected)
[2021-06-22] MEDS: METHOCARBAMOL 500 MG TABLET PO PRN (10:42)
[2021-06-22] MEDS: PRENATAL VITAMINS W/ FOLIC ACID TABLET (FP) PO SCH (10:42)
[2021-06-22] MEDS ORDERED: P-EPHED 60MG/TRIPROLIDI 2.5MG TABLET PO PRN (14:23)
[2021-06-22] MEDS: MELATONIN 5 MG TABLETS PO SCH (22:24)
[2021-06-22] MEDS: THIAMINE HCL 100 MG TABLET (FP) PO SCH (22:24)
[2021-06-22] MEDS: PHENYLEPHRINE 0.25% NASAL SPRAY 15 ML BOTTLE NS SCH (23:46)
[2021-06-23] MEDS ORDERED: LORazepam 0.5 MG TABLET PO PRN
[2021-06-23] MEDS: LORazepam 0.5 MG TABLET PO SCH ×4 (06:36→22:34)
[2021-06-23] MEDS: hydrOXYzine PAMOATE 25 MG CAPSULE (FP) PO SCH ×5 (06:37→22:35)
[2021-06-23] MEDS: PRENATAL VITAMINS W/ FOLIC ACID TABLET (FP) PO SCH (10:23)
[2021-06-23] MEDS: PHENYLEPHRINE 0.25% NASAL SPRAY 15 ML BOTTLE NS SCH ×2 (10:23→22:34)
[2021-06-23] MEDS: THIAMINE HCL 100 MG TABLET (FP) PO SCH (22:34)
[2021-06-23] MEDS: MELATONIN 5 MG TABLETS PO SCH (22:35)
[2021-06-24] MEDS ORDERED: LORazepam 0.5 MG TABLET PO ONE (05:00)
[2021-06-24] MEDS: hydrOXYzine PAMOATE 25 MG CAPSULE (FP) PO SCH ×2 (05:23→10:28)
[2021-06-24 09:32] VITALS: BP 132/93; PULSE 106; TEMP 96.9
[2021-06-24] MEDS: PRENATAL VITAMINS W/ FOLIC ACID TABLET (FP) PO SCH (10:28)
[2021-06-24] MEDS: PHENYLEPHRINE 0.25% NASAL SPRAY 15 ML BOTTLE NS SCH (10:29)
== END 2021-06-24 10:36 | disposition home or self-care (01) | DRG 774 ==
LOC: YASAS 10:14 → Y6N 12:26
PROVIDERS: ADMIT Allergy & Immunology; ATTEND Allergy & Immunology
PROC: HZ2ZZZZ Detoxification Services for Substance Abuse Treatment (ICD-10-PCS; principal; 2021-06-20)
DX: F10.230 Alcohol dependence with withdrawal, uncomplicated (principal); F14.20 Cocaine dependence, uncomplicated; F12.20 Cannabis dependence, uncomplicated; F17.213 Nicotine dependence, cigarettes, with withdrawal; F33.1 Major depressive disorder, recurrent, moderate; Z28.310 Unvaccinated for COVID-19
CPT/HCPCS: 36415; 80053; 82962; 85027; 86780; 87389; C9803-CS; U0003; U0005